=== PATIENT | male | born 1945 | race Caucasian/White ===

== ENCOUNTER 2018-12-21 08:43 | Outpatient (RCR) | payer MEDICARE, OTHER, SELFPAY ==
--- NOTE | 2018-12-21 12:54 | PCSTNOTE ---
This patient was initially evaluated on 10/15/18and found to have receptive/expressive aphasia. See [facility] notes, for details.
[2019-01-08 09:00] VITALS: O2SAT 50
[2019-01-10 10:10] VITALS: O2SAT 100
--- NOTE | 2019-01-21 08:41 | STOPEVAL ---
Thank you for referring this patient to [facility]. Please review, sign, date and return this plan of care AMADOR. I agree with and certify that the following plan of care is medically necessary. Referring Physician Date Admitting Provider: Attending Provider: KATERINA JOSE Referring Provider: LAUREN Outpatient Evaluation Start: 12/21/18 12:19 Freq: Status: Active Protocol: Document 01/14/19 10:17 BAS (Rec: 01/14/19 10:23 BAS [id number]) Therapy Assessment Status Assessment Status Assessment Status Discharge Outpatient Past Medical History Neurological History Hx Cerebrovascular Accident (CVA) Yes: History CVA 10/10/18 Cardiovascular History Hx Cardiac Surgery Yes Hx Coronary Artery Disease Yes Hx Hypertension Yes Respiratory History Hx Respiratory Disorders No Significant History Gastrointestinal History Hx Gastrointestinal Disorders No Significant History Genitourinary History Hx Genitourinary Disorders No Significant History Musculoskeletal History Hx Musculoskeletal Disorders No Significant History Hematological History Hx Hematological Disorders No Significant History Endocrine History Hx Endocrine Disorders No Significant History HEENT History Hx HEENT Disorders No Significant History Integumentary History Hx Skin Disorders No Significant History Reproductive History Hx Reproductive Disorders No Significant History Psychosocial History Hx Psychiatric Disorders No Significant History Pain History History of Any Previous or Ongoing No Significant History Instance of Pain Anesthesia History Hx Anesthesia Reactions No Significant History Pain Assessment Timing of Pain Assessment Timing of Pain Assessment Pre-Treatment Self Report Self Report Pain Level 0 Pain Score Pain Score 0: Self Report Language Evaluation Auditory Comprehension Simple Yes/No Questions (% Accuracy (0- 100 100)) Moderate Yes/No Questions (% Accuracy (0 80 -100)) Complex Yes/No Questions (% Accuracy (0- 40 100)) Auditory Comprehension of Simple 100 Paragraphs (% Accuracy (0-100)) Auditory Comprehension of Moderate 40 Paragraphs (% Accuracy (0-100)) Auditory Comprehension of Complex 80 Paragraphs (% Accuracy (0-100)) Response Latency Mild Deficits Factors Limiting Auditory Comprehension Aphasia Overall Auditory Comprehension Ability Mild Deficits Reading Comprehension Name Recognition Yes Comprehension of Complex Statements (% 0 Accuracy (0-100)) Comprehension of Simple Paragraphs (% 100 Accuracy (0-100)) Comprehension of Moderate Paragraphs (% 100 Accuracy (0-100))
== END 2019-03-21 23:59 | disposition home or self-care (01) ==
LOC: CHSST 08:43
DX: I69.320 Aphasia following cerebral infarction (principal)
CPT/HCPCS: 92507

== ENCOUNTER 2020-12-11 11:28 | Outpatient (CLI) | payer MEDICARE, SELFPAY ==
--- NOTE | 2020-12-11 11:45 | ECG_ITS ---
Measurements Intervals [place] Rate: 51 P: 52 PA: 165 QRS: 59 QRSD: 161 T: 89 QT: 480 QTc: 442 Interpretive Statements SINUS BRADYCARDIA POSSIBLE LEFT ATRIAL ENLARGEMENT LEFT BUNDLE BRANCH BLOCK BASELINE ARTIFACT- I, II, AVR, AVL ABNORMAL ECG Electronically Signed On 12-11-2020 11:51:56 CDT by Kevin Batista D.O.
[2020-12-11 12:12] LABS: Anion Gap 8 mmol/L (8-16); Blood Urea Nitrogen 38 mg/dL (9-20); Calcium 8.9 mg/dL (8.4-10.2); Carbon Dioxide 29 mmol/L (22-30); Chloride 102 mmol/L (98-107); Estimated Glomerular Filt Rate 35; Glucose 115 mg/dL (65-110); INR 1.1; Potassium 4.3 mmol/L (3.4-5.0); Prothrombin Time 13.6 Seconds (11.1-14.7); Sodium 139 mmol/L (137-145)
[2020-12-11 12:13] LABS: Partial Thromboplastin Time 28.1 SECONDS (22.3-36.8)
== END 2020-12-11 11:29 | disposition home or self-care (01) ==
LOC: ANHSURGERY 11:32
PROVIDERS: Anesthesiology; PCP Family Medicine; Visit Provider Surgery
DX: Z01.818 Encounter for other preprocedural examination (principal); K40.90 Unilateral inguinal hernia, without obstruction or gangrene, not specified as recurrent; Z51.81 Encounter for therapeutic drug level monitoring; Z79.899 Other long term (current) drug therapy; I12.9 Hypertensive chronic kidney disease with stage 1 through stage 4 chronic kidney disease, or unspecified chronic kidney disease; N18.30 Chronic kidney disease, stage 3 unspecified; I44.7 Left bundle-branch block, unspecified; R00.1 Bradycardia, unspecified
CPT/HCPCS: 36415; 80048; 85610; 85730; 86850; 86900; 86901; 93005

== ENCOUNTER 2020-12-15 01:15 | Day surgery (SDC) | payer MEDICARE, SELFPAY ==
[2020-12-11 09:21] VITALS: BMI 22.1
[2020-12-15] VITALS (11 sets, daily range): BP systolic 143–187; BP diastolic 51–105; PULSE 44–76; RESP 12–20; TEMP 36.2; O2SAT 97–100
--- NOTE | 2020-12-15 08:06 | WPDANESEPPF ---
Anes - Initial Pre Proc Eval Procedure: Operation Date: 12/15/20 12:30 Proposed Procedures p Laparoscopic Left Inguinal Hernia Repair with Mesh, Davinci Assisted, - Herminio Cunningham DO s Recurrent Incisional Hernia Repair with Mesh - Herminio Cunningham DO Date/Time: 12/15/20 08:06 Surgeon: Herminio Cunningham DO Pre Op Diagnosis: left inguinal hernia, recur incisional hernia Patient Data Age: 75 Gender: M Height: 1.75 m Weight: 68.18 kg Allergies Allergy/AdvReac Type Severity Reaction Status Date / Time tramadol AdvReac Itching Verified 12/15/20 10:37 Home Medications Medication Instructions Recorded Confirmed Type hydrochlorothiazide 25 mg tablet 25 mg PO DAILY #90 tablet 05/27/19 12/15/20 Rx clopidogrel 75 mg tablet 75 mg PO DAILY #90 tablet 08/21/19 12/11/20 Rx losartan 50 mg tablet 50 mg PO DAILY #90 tablet 08/21/19 12/15/20 Rx aspirin 81 mg tablet,delayed 81 mg PO DAILY 08/30/19 12/15/20 History release metoprolol tartrate 50 mg tablet 50 mg PO BID #180 tablet 10/17/19 12/15/20 Rx isosorbide dinitrate 10 mg tablet 10 mg PO BID #180 tablet 01/02/20 12/15/20 Rx ezetimibe 10 mg tablet 10 mg PO DAILY #90 tablet 02/06/20 12/15/20 Rx tamsulosin 0.4 mg capsule 0.8 mg PO QHS #60 cap 11/24/20 12/15/20 Rx atorvastatin [Lipitor] 80 mg PO HS 12/11/20 12/15/20 History hydralazine 10 mg PO PRN 12/15/20 12/15/20 History pantoprazole 20 mg PO BID 12/15/20 12/15/20 History Patient hx anesthesia problems: none Family hx anesthesia problems: none Results Review: All pre-operative results and documents have been reviewed as part of the pre-operative evaluation. [facility] Past Medical History Medical History (Updated 12/15/20 @ 08:07 by Harvinder Luo DO) BPH (benign prostatic hyperplasia) Carotid stenosis, bilateral Chronic kidney disease, stage 3 unspecified Controlled diabetes mellitus Hypertension Non-ST elevation [place] (NSTEMI) Stroke Surgical History Surgical History (Updated 12/15/20 @ 08:07 by Harvinder Luo DO) History of appendectomy History of carotid endarterectomy bilateral History of cholecystectomy History of coronary artery stent placement History of umbilical hernia repair with mesh in 2019 S/P CABG (coronary artery bypass graft) S/P TAVR (transcatheter aortic valve replacement) Family History Family History Sibling Family history of malignant neoplasm Family history of diabetes mellitus in first degree relative Mother Family history of diabetes mellitus in first degree relative Cerebrovascular accident, Onset Age: 65 Patient's mother is Social History Social History Smoking packs per day: 1 Smoking cigarettes per day: 20.0 Years smoked: 4 Smoking pack-years: 4.00 Smoking status: Former smoker Tobacco type: cigarettes Second hand tobacco smoke exposure: No Smoking end date: 02/21/1964 Alcohol intake: current Drinks per week: 3 Substance use: never Substance use type: does not use Living arrangements: with family Gender identity (if verbalized by the patient): Male Sexual Orientation (if Verbalized by the Patient): Straight or Heterosexual Spiritual care concerns: No Anes - Eval Final PreProcedure Day of Procedure 12/15/20 08:06 Patient weight: normal Heart: regular rate and rhythm Lungs: clear to auscultation and normal air movement Airway: Mallampati scale class II Neurological: alert and oriented Last oral intake: >/= 8 hours ASA classification: IV Emergent: no Anesthetic plan: proceed Anesthesia type and monitoring: general ETT and standard monitoring Results Review: All pre-operative results and documents have been reviewed as part of the pre-operative evaluation. Informed Consent: The patient's anesthetic plan and its attendant risks and benefits were discussed with the patient/family/POA
[2020-12-15] MEDS: ACETAMINOPHEN 500 MG TABLET 1000 MG PO (11:05)
[2020-12-15] MEDS: LACTATED RINGERS 1,000 ML 30 ML IV CONT ×3 (11:09→15:52)
[2020-12-15] MEDS: KETOROLAC 15 MG/ML VIAL (*BKC) IV PUSH (11:10)
[2020-12-15 11:15] LABS: Glucose Point of Care 108 mg/dl (65-105)
--- NOTE | 2020-12-15 11:27 | PM.IMHP ---
H&P: HPI History of Present Illness Date/Time: 12/15/20 11:27 Chief Complaint: Recurrent incisional hernia, left inguinal hernia Narrative: This is a 75-year-old man who presents with a recurrent incisional hernia just above his umbilicus. He also has a left inguinal hernia. He presents for surgical repair of these hernias today. He reports no changes in his health since last seen in office. Review of Systems Review of Systems: All systems reviewed & are unremarkable except as noted in HPI and below Constitutional: Constitutional: Denies chills, Denies fever(s), Denies headache(s) and Denies weight loss Eyes: Eyes: Denies change in vision ENT: Denies dizziness, Denies headache(s), Denies neck mass and Denies throat swelling Cardiovascular: Cardiovascular: Denies chest pain, Denies lightheadedness and Denies dyspnea Respiratory: Respiratory: Denies cough, Denies dyspnea and Denies wheezing Gastrointestinal: Gastrointestinal: Denies abdominal pain, Denies change in bowel habits, Denies nausea and Denies vomiting Genitourinary: Genitourinary: Denies hematuria and Denies dysuria Musculoskeletal: Musculoskeletal: Reports as per HPI Integumentary/Breasts: Skin/Breast: Reports as per HPI Neurologic: Denies dizziness and Denies headache(s) Allergic/Immunologic: Allergic/Immunologic: Denies throat swelling and Denies wheezing [facility] Past Medical History Medical History (Updated 12/15/20 @ 08:07 by Harvinder Luo DO) BPH (benign prostatic hyperplasia) Carotid stenosis, bilateral Chronic kidney disease, stage 3 unspecified Controlled diabetes mellitus Hypertension Non-ST elevation [place] (NSTEMI) Stroke Surgical History Surgical History (Updated 12/15/20 @ 08:07 by Harvinder Luo DO) History of appendectomy History of carotid endarterectomy bilateral History of cholecystectomy History of coronary artery stent placement History of umbilical hernia repair with mesh in 2019 S/P CABG (coronary artery bypass graft) S/P TAVR (transcatheter aortic valve replacement) Family History Family History Sibling Family history of malignant neoplasm Family history of diabetes mellitus in first degree relative Mother Family history of diabetes mellitus in first degree relative Cerebrovascular accident, Onset Age: 65 Patient's mother is Social History Social History Smoking packs per day: 1 Smoking cigarettes per day: 20.0 Years smoked: 4 Smoking pack-years: 4.00 Smoking status: Former smoker Tobacco type: cigarettes Second hand tobacco smoke exposure: No Smoking end date: 02/21/1964 Alcohol intake: current Drinks per week: 3 Substance use: never Substance use type: does not use Living arrangements: with family Gender identity (if verbalized by the patient): Male Sexual Orientation (if Verbalized by the Patient): Straight or Heterosexual Spiritual care concerns: No Meds Home Medications and Allergies Home Medications Medication Instructions Recorded Confirmed Type hydrochlorothiazide 25 mg tablet 25 mg PO DAILY #90 tablet 05/27/19 12/15/20 Rx clopidogrel 75 mg tablet 75 mg PO DAILY #90 tablet 08/21/19 12/11/20 Rx losartan 50 mg tablet 50 mg PO DAILY #90 tablet 08/21/19 12/15/20 Rx aspirin 81 mg tablet,delayed 81 mg PO DAILY 08/30/19 12/15/20 History release metoprolol tartrate 50 mg tablet 50 mg PO BID #180 tablet 10/17/19 12/15/20 Rx isosorbide dinitrate 10 mg tablet 10 mg PO BID #180 tablet 01/02/20 12/15/20 Rx ezetimibe 10 mg tablet 10 mg PO DAILY #90 tablet 02/06/20 12/15/20 Rx tamsulosin 0.4 mg capsule 0.8 mg PO QHS #60 cap 11/24/20 12/15/20 Rx atorvastatin [Lipitor] 80 mg PO HS 12/11/20 12/15/20 History hydralazine 10 mg PO PRN 12/15/20 12/15/20 History pantoprazole 20 mg PO BID 12/15/20 12/15/20 History Allergies Allergy/Ad
--- NOTE | 2020-12-15 11:30 | WPDHPUPDATE1 ---
History and Physical Update Update Date/Time: 12/15/20 11:30 History and Physical has been reviewed, including an updated exam of the patient. There are NO changes in the patient's condition. Risks, benefits, and alternatives have been discussed and questions answered. Patient agrees to proceed with procedure.
[2020-12-15] MEDS: ceFAZolin 2 GM/D5W 50 ML 2 GM/50 ML BAG IVPB (11:59)
[2020-12-15] MEDS: BUPIVACAINE HCL 0.5% PF 30 ML VIAL INFILTRATE (12:13)
--- NOTE | 2020-12-15 13:36 | SUR.OPER ---
EBL=5ml
--- NOTE | 2020-12-15 13:39 | W.PM.PROC2 ---
Procedure Note - Detailed Date of Procedure 12/15/20 Pre-op Diagnosis Recurrent incisional hernia, left inguinal hernia Post-op Diagnosis same Procedure Performed 1. Recurrent incisional hernia repair with Ventralex ST 8 cm mesh patch 2. Laparoscopic left inguinal hernia repair with mesh, da Joao assisted Surgeon Herminio Cunningham DO Anesthesia general and local (0.5% bupivacaine with epinephrine) Indications This is a 75-year-old man who presents with a supraumbilical bulge and left groin bulge. He had noticed the left groin bulge and discomfort for several months, and notice the supraumbilical bulge shortly after having an umbilical hernia repair and laparoscopic cholecystectomy. He appears to have a recurrent incisional hernia near the site of the previous laparoscopic cholecystectomy and hernia repair and was also found to have a reducible left inguinal hernia. Discussions were made with the patient about treatment options and decision was made to proceed with recurrent incisional hernia repair with mesh and laparoscopic left inguinal hernia repair with mesh, de Joao assisted. Findings The patient was found to have a 1.5 cm recurrent incisional hernia just superior to the umbilicus. The hernia sac was excised and sent to the lab for pathology. The hernia was then repaired using an [address] mesh patch. The left inguinal hernia was repaired laparoscopically with robotic assistance. He was found to have an indirect left inguinal hernia. There was sigmoid colon entering up into the hernia orifice, but this was easily reduced. A robotic transabdominal preperitoneal approach was utilized and a large left Bard 3DMax mid mesh was placed within the preperitoneal pocket overlying the entire left myopectineal orifice. Description of Procedure Procedure as well as risks, benefits, and alternatives were discussed with the patient. Written consent was obtained and placed in chart prior to procedure. Patient was brought back to surgical suite. He was placed supine on operating table. Time-out was done to confirm patient and procedure. He was then intubated by Anesthesia Department. His abdomen was prepped and draped in sterile fashion using chlorhexidine prep. 0.5% bupivacaine with epinephrine was infiltrated at each location for incision. A 4 cm curvilinear incision was made just superior to the umbilicus using a 15 blade scalpel. Electrocautery was used for hemostasis and for dissection through the subcutaneous tissue. The hernia sac was encountered and this was carefully dissected free circumferentially using electrocautery. The hernia sac was also lifted off of the umbilical skin with electrocautery. The hernia sac was then excised and sent to the lab for pathology. The incisional hernia measured about 1.5 cm, therefore the hernia was used as the port site for the initial 12 mm port. A 12 millimeter trocar was inserted through the hernia defect and carbon dioxide insufflation was used to create a pneumoperitoneum. A camera was inserted and the abdominal cavity was inspected. The patient was placed in slight Trendelenburg position. An 8 millimeter incision was made on the right lateral abdomen and an 8 millimeter trocar was inserted under direct visualization. Another 8 millimeter incision was made in the left lateral abdomen and an 8 millimeter trocar was inserted under direct visualization. The robotic arms were brought up to the patient's bedside and secured to the ports. The camera and instruments were inserted. I then moved over to the robotic console and took control of the camera and instruments. After careful inspection of the abdominal cavity, I began scoring the peritoneum along the left lower quadrant using scissors with electrocautery. The preperitoneal plane was entered and this was carefully dissected caudally along the inferior epigastric vessels. Careful dissection with scissors with electrocautery and blunt dissection was us
[2020-12-15 14:04] LABS: Glucose Point of Care 103 mg/dl (65-105)
[2020-12-15] MEDS: hydrALAZINE HCL 20 MG/ML VIAL 10 MG IV PUSH (15:49)
== END 2020-12-15 16:35 | disposition home or self-care (01) ==
PROVIDERS: PCP Family Medicine; Visit Provider Surgery
PROC: 8E0Y4CZ Robotic Assisted Procedure of Lower Extremity, Percutaneous Endoscopic Approach (ICD-10-PCS; CPT 49650; principal; 2020-12-15 12:30)
PROC: 0WQF0ZZ Repair Abdominal Wall, Open Approach (ICD-10-PCS; CPT 49565; 2020-12-15 12:30)
DX: K43.2 Incisional hernia without obstruction or gangrene (principal); K40.90 Unilateral inguinal hernia, without obstruction or gangrene, not specified as recurrent; I12.9 Hypertensive chronic kidney disease with stage 1 through stage 4 chronic kidney disease, or unspecified chronic kidney disease; N18.30 Chronic kidney disease, stage 3 unspecified; E11.22 Type 2 diabetes mellitus with diabetic chronic kidney disease; I25.2 Old myocardial infarction; N40.0 Benign prostatic hyperplasia without lower urinary tract symptoms; I65.23 Occlusion and stenosis of bilateral carotid arteries; Z86.73 Personal history of transient ischemic attack (TIA), and cerebral infarction without residual deficits; Z95.5 Presence of coronary angioplasty implant and graft; Z95.1 Presence of aortocoronary bypass graft; Z95.4 Presence of other heart-valve replacement; Z87.891 Personal history of nicotine dependence; Z79.02 Long term (current) use of antithrombotics/antiplatelets; Z79.82 Long term (current) use of aspirin
CPT/HCPCS: 49565; 49568; 49650; S2900; 82948; 88302; A9270; J0360; J0690; J1100; J1885; J2405; J2704; J2710; J3010; J7120

== ENCOUNTER 2023-05-03 09:30 | Outpatient (RCR) | payer MEDICARE, SELFPAY | END 2023-05-03 14:00 | disposition home or self-care (01) | PROVIDERS: PCP Family Medicine | DX: Z95.5 Presence of coronary angioplasty implant and graft (principal) | CPT/HCPCS: 93798 ==

== ENCOUNTER 2023-06-05 09:30 | Outpatient (CLI) | payer MEDICARE, SELFPAY ==
--- NOTE | ~2023-06-05 | XR_ITS ---
Left Knee Technique: AP and lateral views were obtained. Clinical History: Effusion Findings: No fracture or dislocation is seen. Osseous alignment is anatomic. Joint spaces are preserv ed without degenerative or erosive change. There is prepatellar soft tissue edema/thickening. No join t effusion is seen. Impression: Prepatellar soft tissue edema/thickening. Correlate for prepatellar bursitis. Reviewed, dictated and finalized at location . Impression: Prepatellar soft tissue edema/thickening. Correlate for prepatellar bursitis.
== END 2023-06-05 09:31 ==
PROVIDERS: PCP Family Medicine; Visit Provider Family Medicine
DX: M25.462 Effusion, left knee (principal)
CPT/HCPCS: 73560

== ENCOUNTER 2024-01-03 12:07 | Outpatient (CLI) | payer MEDICARE, SELFPAY ==
--- NOTE | ~2024-01-03 | XR_ITS ---
XR chest 2V Ordering provider: Shemar Dennis MD History: 78 years Male with . R06.09 - Other forms of dyspnea . Comparison: None. FINDINGS: MEDIASTINUM: The cardiac silhouette is not enlarged. Postoperative changes in the mediastinum. LUNGS: No infiltrates, effusions or pneumothorax. Prominent bronchovascular markings in the left lowe r lobe which may indicate atelectasis. Early pneumonia is not excluded. OTHER: No free air under the diaphragm. Fracture T12 is noted with compression which may be acute or chronic. MRI is advised. Old healed ribs in the left hemithorax. Degenerative changes of the spine. IMPRESSION: Prominent bronchovascular markings in the left lower lobe area which may indicate atelectasis versus early pneumonia. Reviewed, dictated and finalized at location [facility] [employer] IMPRESSION: Prominent bronchovascular markings in the left lower lobe area which may indica te atelectasis versus early pneumonia.
== END 2024-01-03 12:08 | disposition home or self-care (01) ==
LOC: GOSHIMG 12:09
PROVIDERS: PCP Family Medicine; Visit Provider Family Medicine
DX: R06.09 Other forms of dyspnea (principal)
CPT/HCPCS: 71046

== ENCOUNTER 2024-06-24 14:35 | Outpatient (CLI) | payer MEDICARE, SELFPAY ==
--- NOTE | ~2024-06-24 | US_ITS ---
EXAMINATION: US renal BI DATE: 06/24/2024 15:04 INDICATION: Stage IV chronic kidney disease TECHNIQUE: Multiple ultrasound grayscale images of the kidneys were obtained. COMPARISON: None. FINDINGS: The right kidney measures 10.7 x 5.1 x 5.4 cm. The left kidney measures 9.5 x 4.4 x 4.0 cm. The kidne ys demonstrate normal echogenicity. There is no hydronephrosis in either kidney. No stones identifie d. The bladder is normal. IMPRESSION: 1. Normal kidneys without hydronephrosis. Reviewed, dictated and finalized at location A.
== END 2024-06-24 14:36 | disposition home or self-care (01) ==
LOC: MICIMG 14:37
PROVIDERS: PCP Family Medicine; Visit Provider Family Medicine
DX: N18.4 Chronic kidney disease, stage 4 (severe) (principal)
CPT/HCPCS: 76775

== ENCOUNTER 2024-09-03 08:12 | Outpatient (CLI) | payer MEDICARE, SELFPAY ==
--- NOTE | ~2024-09-03 | US_ITS ---
EXAMINATION: US arterial ankle brachial ind DATE: 09/03/2024 09:29 INDICATION: Peripheral vascular disease TECHNIQUE: Segmental pressures and plethysmographic and Doppler waveforms of the brachial and lower e xtremity arteries were obtained. COMPARISON: None. FINDINGS: Right and left brachial artery pressures of 151 mm Hg and 155 mm Hg, respectively, are concordant (no rmal difference <= 30 mmHg). The right ankle-brachial index (ITALO) is unable to be obtained due to inability to occlude the vessels at the right ankle (normal >= 0.9-1.0). The right great toe-brachial index (TBI) is 0.28 (normal >= 0.65). Arterial Doppler waveforms are monophasic with parvus and tardus waveforms with mildly delayed systolic upstrokes and broadened systolic peaks at the right posterior tibial and dorsalis pedis art eries. The left ITALO is also unable to be obtained due to inability to occlude the vessels at the left ankle. The left TBI is 0.19. Arterial Doppler waveforms are monophasic with mildly delayed upstrokes and br oadened systolic peaks at the left dorsalis pedis artery and biphasic with borderline delayed systoli c upstrokes at the left posterior tibial artery. IMPRESSION: 1. Arterial occlusive disease to the bilateral lower limbs with mildly decreased right and severely d ecreased left TBIs and parvus et tardus waveforms in the right posterior tibial and bilateral dorsali s pedis arteries. Reviewed, dictated and finalized at location A. IMPRESSION: 1. Arterial occlusive disease to the bilateral lower limbs with mildly decrease d right and severely decreased left TBIs and parvus et tardus waveforms in the right posterior tibial and bilateral dorsalis pedis arteries.
--- OUTSIDE RECORDS SUMMARY | 2024-09-03 08:21 | XMS_ITS ---
Author Organization [facility] Address [address] [place], [place] [id number] Care Team Providers Care Servicer Travel Trailers Name Role Phone YEFRI Austin Unavailable [phone] Shemar Dennis Unavailable Unavailable RACHIE CHAHAL Unavailable [phone] REASON FOR VISIT *General care Medications Medication [...] Active Encounters Encounter Location Date Provider Diagnosis [address] [id number] 02/01/2024 ARCHIE CHAHAL Other hammer toe(s) (acquired), right foot M20.41 ; Tinea unguium B35.1 ; Other hammer toe(s) (acquired), left foot M20.42 ; Pain in right toe(s) M79.674 ; Pain in left toe(s) M79.675 and Unspecified atherosclerosis of [place] arteries of extremities, bilateral legs I70.203 Assessments [...] (ICD-10 - M79.675) 02/01/2024 Unspecified atherosclerosis of [place] arteries of extremities, bilateral legs (ICD-10 - [...] OTC and prescription treatments. Unspecified atherosclerosis of [place] arteries of extremities, bilateral legs Patient educated on risks and aggravating factors of PVD, including conservative treatment options such as a diet and exercise regimen to aid in slowing progression of vascular disease Next Appt Details Follow Up: 3 Months, Reason: Provider Name:KRISTIN VILLEGAS, 09/05/2024 08:50:00 AM, [address] [place] [address], [id number], Progress Notes * NACHO MARTEDOB:1945 (78 yo M)Acc No.[id number]:02/01/2024 Patient: NACHO RAMIREZ Provider: Amirah CHAHAL :1945 A ge:78 Y S ex:Male Date:02/01/2024 Address:[address] [place] [address] Subjective: * Chief Complaints: * 1 . [...] M79.675 6 . U nspecified atherosclerosis of [place] arteries of extremities, bilateral legs - I70.203 [...] were emphasized. 3. U nspecified atherosclerosis of [place] arteries of extremities, bilateral legs Notes: Patient educated on risks and aggravating factors of PVD, including conservative treatment options such as a diet and exercise regimen to aid in slowing progression of vascular disease ? * Procedure Codes: 1 1721 DEBRIDE NAIL, 6 OR MORE, Modifiers: Q8 * Follow Up: 3 Months * Billing Information: * Visit Code: * Procedure Codes: 79418 DEBRIDE NAIL, 6 OR MORE. Modifiers: Q8 * Electronic signature of GUILLERMINA CHAHAL DPM on 09/03/2024 at 08:21 AM CDT Sign off status: Pending * Provider: Amirah CHAHAL Date: 1 04/03/2023 Generated for Omid estrada/Adriana/Cem on: 0 09/03/2024 08:21 AM CDT History and Physical Notes * HPI [...]
--- OUTSIDE RECORDS SUMMARY | 2024-09-03 08:21 | XMS_ITS ---
Author Organization [facility] Address [address] [place], [place] [address] Care Team Providers Care Lead Engineer Name Role Phone YEFRI Austin Unavailable [phone] Shemar Dennis Unavailable Unavailable KRISTIN GEORGE Unavailable [phone] Allergies No Known Allergies REASON FOR VISIT *General care Medications Medication SIG (Take, Route, Frequency, Duration) Notes Start Date End Date Status Tamsulosin HCl 0.4 MG Oral; Duration: 90 Days Active Pantoprazole Sodium 20 MG Oral; Duration: 90 Days Active Metoprolol Tartrate 25 MG Oral; Duration: 90 Days Active Losartan Potassium 100 MG Oral; Duration: 90 Days Active hydroCHLOROthiazide 25 MG Oral; Duration: 90 Days Active Ezetimibe 10 MG Oral; Duration: 90 Days Active Clopidogrel Bisulfate 75 MG Oral; Duration: 90 Days Active Isosorbide Dinitrate 10 MG Oral; Duration: 90 Days Active Atorvastatin Calcium 80 MG Oral; Duration: 90 Days Active Vital Signs Height 69.00 in 07/04/2024 Weight 152 lbs 07/04/2024 BMI 22.44 kg/m2 07/04/2024 Height-cm 175.26 cm 07/04/2024 Weight-kg 68.95 kg 07/04/2024 9 Encounters Encounter Location Date Provider Diagnosis [address] [id number] 07/04/2024 KRISTIN GEORGE Tinea unguium B35.1 ; Pain in right toe(s) M79.674 ; Pain in left toe(s) M79.675 and Atherosclerosis of [place] arteries of extremities with intermittent claudication, bilateral legs I70.213 Assessments Encounter Date Diagnosis (ICD Code) Assessment Notes Treatment Notes Treatment Clinical Notes Section Notes 07/04/2024 Tinea unguium (ICD-10 - B35.1) FUNGAL TOENAILS: Discussed various treatment options for fungal toenails including debridement, topical antifungals, oral antifungals, toenail avulsion, or toenail matrixectomy. NAIL DEBRIDEMENT: Nails 1-5 Bilateral were debrided extensively with nail nippers and emery board, reducing length and girth to pink healthy tissue with any subungual debris and necrotic tissue removed 07/04/2024 Pain in right toe(s) (ICD-10 - M79.674) 07/04/2024 Pain in left toe(s) (ICD-10 - M79.675) 07/04/2024 Atherosclerosis of [place] arteries of extremities with intermittent claudication, bilateral legs (ICD-10 - I70.213) Plan Of Treatment Treatment Notes Assessment Notes Tinea unguium FUNGAL TOENAILS: Discussed various treatment options for fungal toenails including debridement, topical antifungals, oral antifungals, toenail avulsion, or toenail matrixectomy. NAIL DEBRIDEMENT: Nails 1-5 Bilateral were debrided extensively with nail nippers and emery board, reducing length and girth to pink healthy tissue with any subungual debris and necrotic tissue removed Next Appt Details Follow Up: 10-12 Weeks, Reas on: At Risk Foot care, sooner if problems arise Provider Name:KRISTIN VILLEGAS, 09/05/2024 08:50:00 AM, [address] [place] [address], [phone], Progress Notes * NACHO MARTEDOB:1945 (78 yo M)Acc No.[id number]:07/04/2024 Patient: Marii BRADSHAW NACHO Germain Provider: Koki GEORGE :1945 A ge:78 Y S ex:Male Date:07/04/2024 Address:[address] [place] [address] Subjective: * Chief Complaints: * 1 . *General care. * HPI: H PI: General care P atient presents to the office for diabetic foot care. Patient states that their nails are thickened, elongated and painful. Patient states that it is aggravated by shoe gear. Onset is gradual., Patient denies taking prescription blood thinners but does take a daily aspirin., Date last seen by Dr. Dennis was 05/2024., Initials mca. * ROS: G eneral / Constitutional: Patient denies w eakness. M usculoskeletal: Patient complains of h ammertoes. P eripheral Vascular: Patient denies b lanching of skin, cold extremities, decreased sensation in extremities. S kin: Patient complains of f ungal nails, nail changes. ? N eurologic: Patient denies d izziness, gait abnormality, headache. * Medical History: Koki sibley. * Family History: F ather: PRN - Father: :: Stroke,,known absent , :: Diabetes,,known absent . M other: PRN - Mother: :: Hypertension,,known absent . B rother: SIB - Brother: :: Hypertension,,known absent , , :: Diabetes,,known absent , :: Heart Disease < 55 yrs,,known absent . S ister: SIB - Sister: :: Hypertension,,known absent , :: Cancer,,known absent , , :: Diabetes,,known absent .? * Social History: M igrated Social History: M igrated Social History: Alcohol intake : , History of tobacco use : , Smoking Status : Former smoker. * Medications: T aking Atorvastatin Calcium 80 [...] Taking Tamsulosin HCl 0.4 MG Capsule Oral , Medication List reviewed and reconciled with the patient * Allergies: N .K.D.A. Objective: * Vitals: S hoe Size: 9, Wt: 152 lbs, Wt-k.95 kg, Ht: 69.00 in, Ht-cm: 175.26 cm, BMI: 22.44 Index, Body Surface Area: 1.83. 9. * Examination: C onstitutional: Constitutional T he patient is awake, alert, well developed, well groomed and well nourished. D ermatologic: Skin findings: S kin is thin, atrophic and lacking pedal hair. Nail pathology: N ails 1, 2, 3, 4, and 5 bilateral are elongated, thick, discolored, and dystrophic with subungual debris. They are painful to palpation. ? V ascular: Dorsalis pedis pulse: 1 /4 b ilateral. Posterior tibial pulse: 0 /4 b ilateral. Capillary refill: g reater than 3 seconds. Edema: N o edema, bilateral. N eurologic: Gross sensation G ross sensation is intact to light touch.? M usculoskeletal: Muscle Strength M uscle strength is 5/5 in regards to dorsiflexion, plantarflexion, inversion, and eversion in bilateral lower extremities. ? Assessment: * Assessment: 1. T inea unguium - B35.1 (Primary) 2 . P ain in right toe(s) - M79.674? 3. P ain in left toe(s) - M79.675 4 . A therosclerosis of [place] arteries of extremities with intermittent claudication, bilateral legs - I70.213 Plan: * Treatment: * Immunizations: Immunization record has been reviewed and updated. * Procedure Codes: 1 1721 DEBRIDE NAIL, 6 OR MORE, Modifiers: Q8 * Follow Up: 1 0-12 Weeks (Reason: At Risk Foot care, sooner if problems arise) * Billing Information: * Visit Code: * Procedure Codes: 91307 DEBRIDE NAIL, 6 OR MORE. Modifiers: Q8 * Electronic signature of MARTINA GEORGE DPM on 09/03/2024 at 08:21 AM CDT Sign off status: Pending * Provider: Koki GEORGE Date: 0 07/04/2024 Generated for Omid Garza on: 0 09/03/2024 08:21 AM CDT History and Physical Notes * HPI (History of Present Illness) Category Sub-Category Detail Notes Category Not es HPI General care Patient presents to the office for diabetic foot care. Patient states that their nails are thickened, elongated and painful. Patient states that it is aggravated by shoe gear. Onset is gradual., Patient denies taking prescription blood thinners but does take a daily aspirin., Date last seen by Dr. Dennis was 05/2024., Initials mca Examination Category Sub-Category Detail Notes Category Not es Dermatologic Skin findings: Skin is thin, at rophic and lacking pedal hair Nail pathology: Nails 1, 2, 3, 4, an d 5 bilateral are elongated, thick, discolored, and dystrophic with subungual debris. They are painful to palpation Neurologic Gross sensation Gross sensation is intact to light touch Vascular Dorsalis pedis pulse: 1/4 bilateral Edema: No edema, bilateral Capillary refill: greater than 3 secon ds Posterior tibial pulse: 0/4 bilateral Musculoskeletal Muscle Strength Muscle strength is 5/5 in regards to dorsiflexion, plantarflexion, inversion, and eversion in bilateral lower extremities Constitutional Constitutional The patient is a wake, alert, well developed, well groomed and well nourished
--- OUTSIDE RECORDS SUMMARY | 2024-09-03 08:21 | XMS_ITS | Clinical Summary ---
Author Organization [facility] SocialGuide Address [address] [place] [address] Care Team Providers Care First Breaker Feeder Name Role Phone Unavailable Primary Care Provider Unavailabl e Source Comments [facility],non-owned Affiliates and Associated Physician Practices is amultiple site organization consisting of ambulatory clinics and hospital sitesin [place], [place], [place] and [place]. This disclosure is being madepursuant to the Care Everywhere program and may not contain all information available regarding this patient. Last updated 17.[facility] [employer] Allergies No known active allergies Medications * Be aware that medications may not be up to date on this document. Alwaysverify current medications with the patient. lisinopril (PRINIVIL; ZESTRIL) 10 MG tablet Take 10 mg by mouth daily. Take am of surgery Active niacin CR (NIASPAN) 500 MG tablet Take 500 mg by mouth at bedtime. Active LIPITOR PO Take by mouth daily. Active aspirin 81 MG tablet Take 81 mg by mouth daily. Active MULTIPLE VITAMINS PO Take by mouth. 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 Gender Identity Not on file Sexual Orientation Not on file Last Filed Vital Signs Vital Sign Reading Time Taken Comments Blood Pressure 123/64 04/28/2009 8:00 AM MOTTLE LAY UP OPERATOR Pulse 100 04/28/2009 8:00 AM MOTTLE LAY UP OPERATOR Temperature 36.9 C (98.5 F) 04/28/2009 12:00 AM MOTTLE LAY UP OPERATOR Respiratory Rate 13 04/28/2009 7:00 AM MOTTLE LAY UP OPERATOR Oxygen Saturation 99% 04/28/2009 8:00 AM MOTTLE LAY UP OPERATOR Inhaled Oxygen Concentration - - Weight 78.1 kg (172 lb 2.9 oz) 04/28/2009 8:00 A M MOTTLE LAY UP OPERATOR Height 175.3 cm (5' 9) 04/28/2009 8:00 AM MOTTLE LAY UP OPERATOR Body Mass Index 25.43 04/28/2009 8:00 AM MOTTLE LAY UP OPERATOR Plan of Treatment Health Maintenance Due Date Last Done Comments DTAP/TDAP/TD VACCINES (1 - Tdap) 12/08/1962 PNEUMOCOCCAL VACCINE 50+ (1 of 1 - PCV) 12/08/1993 ZOSTER VACCINE (1 of 2) 12/08/1993 Respiratory Syncytial Virus (RSV) Vaccine Pt: or over 60 yrs (1 - 1-dose 75+ series) 12/08/2018 COVID-19 VACCINE ( - 2023-2 5 season) 2023 DEPRESSION SCREENING 02/21/2024 INFLUENZA VACCINE (#1) 2024 HEPATITIS B VACCINE Aged Out No longe r eligible based on patient's age to complete this topic HIB VACCINE Aged Out No longer eligi ble based on patient's age to complete this topic HPV VACCINE Aged Out No longer eligi ble based on patient's age to complete this topic MENINGOCOCCAL (Group B) VACC INE SHARED DECISION-MAKING Aged Out No longer eligibl e based on patient's age to complete this topic MENINGOCOCCAL GROUPS A/C/Y/W VACCINE Aged Out No longer eligible b ased on patient's age to complete this topic Insurance MEDICARE Advance Directives * Full Code (Latest Code Status on File) Date Activated Date Inactivated Comments 04/27/2009 1:02 PM 04/29/2009 1:09 AM
--- OUTSIDE RECORDS SUMMARY | 2024-09-03 08:21 | XMS_ITS | Patient Health Record ---
Author Organization [facility] Address [address] [place], [place] [address] Care Team Providers Care Ammunition Assembly I Laborer Name Role Phone MayteYEFRI walters Unavailable [phone] Shemar Dennis Unavailable Unavailable DELIA MARTINEZ Unavailable [phone] ARCHIE CHAHAL Unavailable [phone] KRISTIN GEORGE Unavailable [phone] Allergies No Known Allergies Reason For Referral No Information Medications Medication SIG (Take, Route, Frequency, Duration) Notes Start Date End Date Status Ezetimibe 10 MG Oral; Duration: 90 Days Active Clopidogrel Bisulfate 75 MG Oral; Duration: 90 Days Active Isosorbide Dinitrate 10 MG Oral; Duration: 90 Days Active Tamsulosin HCl 0.4 MG Oral; Duration: 90 Days Active Atorvastatin Calcium 80 MG Oral; Duration: 90 Days Active Pantoprazole Sodium 20 MG Oral; Duration: 90 Days Active Metoprolol Tartrate 25 MG Oral; Duration: 90 Days Active Losartan Potassium 100 MG Oral; Duration: 90 Days Active hydroCHLOROthiazide 25 MG Oral; Duration: 90 Days Active Vital Signs Height-cm 175.26 cm 07/04/2024 9 Weight-kg 68.95 kg 07/04/2024 9 Height 69.00 in 07/04/2024 9 Weight 152 lbs 07/04/2024 9 BMI 22.44 kg/m2 07/04/2024 9 Encounters Encounter Location Date Provider Diagnosis [address] [id number] 02/01/2024 ARCHIE CHAHAL Other hammer toe(s) (acquired), right foot M20.41 ; Tinea unguium B35.1 ; Other hammer toe(s) (acquired), left foot M20.42 ; Pain in right toe(s) M79.674 ; Pain in left toe(s) M79.675 and Unspecified atherosclerosis of [place] lions arteries of extremities, bilateral legs I70.[address] [id number] 07/04/2024 KRISTIN CRUZFORD Tinea unguium B35.1 ; Pain in right toe(s) M79.674 ; Pain in left toe(s) M79.675 and Atherosclerosis of [place] lions arteries of extremities with intermittent claudication, bilateral legs I70.[address] [id number] 09/28/2023 ARCHIE CHAHAL Other hammer toe(s) (acquired), right foot M20.41 ; Tinea unguium B35.1 ; Other hammer toe(s) (acquired), left foot M20.42 ; Pain in right toe(s) M79.674 ; Pain in left toe(s) M79.675 and Unspecified atherosclerosis of port lions arteries of extremities, bilateral legs I70.[address] [id number] 11/30/2023 ARCHIE CHAHAL Other hammer toe(s) (acquired), right foot M20.41 ; Tinea unguium B35.1 ; Other hammer toe(s) (acquired), left foot M20.42 ; Pain in right toe(s) M79.674 ; Pain in left toe(s) M79.675 and Unspecified atherosclerosis of port lions arteries of extremities, bilateral legs I70.[address] [id number] 04/11/2024 DELIA GUTIERREZYADIRA Tinea unguium B35.1 ; Pain in right toe(s) M79.674 ; Pain in left toe(s) M79.675 and Atherosclerosis of [place] lions arteries of extremities with intermittent claudication, bilateral legs I70.213 Assessments Encounter Date Diagnosis (ICD Code) Assessment Notes Treatment Notes Treatment Clinical Notes Section Notes 09/28/2023 Tinea unguium (ICD-10 - B35.1) Aseptic debridement [...] educated regarding both OTC and prescription treatments. 09/28/2023 Other hammer toe(s) (acquired), right foot (ICD-10 [...] were discussed, but conservative options were emphasized. 11/30/2023 Other hammer toe(s) (acquired), right foot (ICD-10 [...] were discussed, but conservative options were emphasized. 11/30/2023 Tinea unguium (ICD-10 - B35.1) Aseptic debridement [...] regarding both OTC and prescription treatments. 02/01/2024 Tinea unguium (ICD-10 - B35.1) Aseptic [...] prescription treatments. 02/01/2024 Other hammer toe(s) (acquired), right foot [...] were discussed, but conservative options were emphasized. 04/11/2024 Tinea unguium (ICD-10 - B35.1) FUNGAL TOENAILS: Discussed various treatment options for fungal toenails including debridement, topical antifungals, oral antifungals, toenail avulsion, or toenail matrixectomy. NAIL DEBRIDEMENT: Nails 1-5 Bilateral were debrided extensively with nail nippers and emery board, reducing length and girth to pink healthy tissue with any subungual debris and necrotic tissue removed 04/11/2024 Pain in right toe(s) (ICD-10 - M79.674) 07/04/2024 Tinea unguium (ICD-10 - B35.1) FUNGAL [...] Pain in left toe(s) (ICD-10 - M79.675) 04/11/2024 Pain in left toe(s) (ICD-10 - M79.675) 02/01/2024 Other hammer toe(s) (acquired), left foot (ICD-10 - M20.42) 11/30/2023 Other hammer toe(s) (acquired), left foot (ICD-10 - M20.42) 09/28/2023 Other hammer toe(s) (acquired), left foot (ICD-10 - M20.42) 09/28/2023 Pain in right toe(s) (ICD-10 - M79.674) 11/30/2023 Pain in right toe(s) (ICD-10 - M79.674) 02/01/2024 Pain in right toe(s) (ICD-10 - M79.674) 04/11/2024 Atherosclerosis of [place] lions arteries of extremities with intermittent claudication, bilateral legs (ICD-10 - I70.213) 07/04/2024 Atherosclerosis of [place] lions arteries of extremities with intermittent claudication, bilateral legs (ICD-10 - I70.213) 02/01/2024 Pain in left toe(s) (ICD-10 - M79.675) 11/30/2023 Pain in left toe(s) (ICD-10 - M79.675) 09/28/2023 Pain in left toe(s) (ICD-10 - M79.675) 09/28/2023 Unspecified atherosclerosis of [place] lions arteries of extremities, bilateral legs (ICD-10 - I70.203) Patient educated on risks and aggravating factors of PVD, including conservative treatment options such as a diet and exercise regimen to aid in slowing progression of vascular disease 02/01/2024 Unspecified atherosclerosis of [place] lions arteries of extremities, bilateral legs (ICD-10 - I70.203) Patient educated on risks and aggravating factors of PVD, including conservative treatment options such as a diet and exercise regimen to aid in slowing progression of vascular disease 11/30/2023 Unspecified atherosclerosis of [place] lions arteries of extremities, bilateral legs (ICD-10 - I70.203) Patient educated on risks and aggravating factors of PVD, including conservative treatment options such as a diet and exercise regimen to aid in slowing progression of vascular disease Plan Of Treatment Next Appt Details Provider Name:KRISTIN VILLEGAS, 09/05/2024 08:50:00 AM, [address] [place] [address], [phone], Insurance Providers Payer Name Payer Address Payer Phone Subscriber Number Group Number Insured Name Patient Relationship to Insured Coverage Start Date Coverage End Date Medicare Part B [place] [address] [place] [phone] [id number] NACHO MARTE Self - patient is the insured [facility] ([facility]) ATTN CLAIMS [address] [place] [address] [id number] NACHO MARTE Self - patient is the insured Medical (General) History Medical History History ICD Code Diabetic
== END 2024-09-03 08:13 | disposition home or self-care (01) ==
PROVIDERS: PCP Family Medicine; Visit Provider Family Medicine
DX: I73.9 Peripheral vascular disease, unspecified (principal)
CPT/HCPCS: 93922

== ENCOUNTER 2024-12-13 18:49 | Emergency (ER) | payer MEDICARE, SELFPAY ==
--- OUTSIDE RECORDS SUMMARY | 2024-02-01 03:20 | XMS_ITS ---
Author Organization [facility] Address [address] [place], [place] [id number] Care Team Providers Care Rotary Filter Operator Name Role Phone YEFRI Austin Unavailable [phone] Shemar Dennis Unavailable Unavailable ARCHIE CHAHAL Unavailable [phone] REASON FOR VISIT *General care Medications Medication SIG (Take, Route, Frequency, Duration) Notes Start Date End Date Status hydroCHLOROthiazide 25 MG Oral; Duration: 90 Days Active Pantoprazole Sodium 20 MG Oral; Duration: 90 Days Active Metoprolol Tartrate 25 MG Oral; Duration: 90 Days Active Tamsulosin HCl 0.4 MG Oral; Duration: 90 Days Active Losartan Potassium 100 MG Oral; Duration: 90 Days Active Isosorbide Dinitrate 10 MG Oral; Duration: 90 Days Active Ezetimibe 10 MG Oral; Duration: 90 Days Active Clopidogrel Bisulfate 75 MG Oral; Duration: 90 Days Active Atorvastatin Calcium 80 MG Oral; Duration: 90 Days Active Encounters Encounter Location Date Provider Diagnosis [address] [id number] 02/01/2024 ARCHIE CHAHAL Other hammer toe(s) (acquired), right foot M20.41 ; Tinea unguium B35.1 ; Other hammer toe(s) (acquired), left foot M20.42 ; Pain in right toe(s) M79.674 ; Pain in left toe(s) M79.675 and Unspecified atherosclerosis of [place] arteries of extremities, bilateral legs I70.203 Assessments Encounter Date Diagnosis (ICD Code) Assessment Notes Treatment Notes Treatment Clinical Notes Section Notes 02/01/2024 Other hammer toe(s) (acquired), right foot (ICD-10 - M20.41) The patient was educated regarding how to mechanically stabilize their deformity. The patient was given education about shoe recommendations specific for the condition. The patient was educated about custom orthotics and how appropriate shoes and orthotics can prevent further worsening of the deformity. The patient was educated about how bad shoe habits can worsen the condition. NSAIDS, P.T., injections and other conservative treatments were discussed. Both surgical and non surgical treatments were discussed, but conservative options were emphasized. 02/01/2024 Tinea unguium (ICD-10 - B35.1) Aseptic debridement of elongated thickened nails x 10 using sterile nippers, nails were debrided in length and thickness by 30% utilizing a nail nipper without incident. The patient was educated regarding all treatment options that include topical and oral antifungal treatments. I discussed the options of taking a sample of the nail to confirm diagnosis. Nail clippings were not sent for pathology analysis. The patient was educated why and how the fungal infection evolved in their feet and the patient was given information regarding how to prevent further infection. The patient was told to keep feet dry and change socks. The patient was told to be careful with old shoes and excessive sweating. The patient was educated regarding both OTC and prescription treatments. 02/01/2024 Other hammer toe(s) (acquired), left foot (ICD-10 - M20.42) 02/01/2024 Pain in right toe(s) (ICD-10 - M79.674) 02/01/2024 Pain in left toe(s) (ICD-10 - M79.675) 02/01/2024 Unspecified atherosclerosis of [place] arteries of extremities, bilateral legs (ICD-10 - I70.203) Patient educated on risks and aggravating factors of PVD, including conservative treatment options such as a diet and exercise regimen to aid in slowing progression of vascular disease Plan Of Treatment Treatment Notes Assessment Notes Other hammer toe(s) (acquired), right fo ot The patient was educated regarding how to mechanically stabilize their deformity. The patient was given education about shoe recommendations specific for the condition. The patient was educated about custom orthotics and how appropriate shoes and orthotics can prevent further worsening of the deformity. The patient was educated about how bad shoe habits can worsen the condition. NSAIDS, P.T., injections and other conservative treatments were discussed. Both surgical and non surgical treatments were discussed, but conservative options were emphasized. Tinea unguium Aseptic debridement of elongated thickened nails x 10 using sterile nippers, nails were debrided in length and thickness by 30% utilizing a nail nipper without incident. The patient was educated regarding all treatment options that include topical and oral antifungal treatments. I discussed the options of taking a sample of the nail to confirm diagnosis. Nail clippings were not sent for pathology analysis. The patient was educated why and how the fungal infection evolved in their feet and the patient was given information regarding how to prevent further infection. The patient was told to keep feet dry and change socks. The patient was told to be careful with old shoes and excessive sweating. The patient was educated regarding both OTC and prescription treatments. Unspecified atherosclerosis of [place] arteries of extremities, bilateral legs Patient educated on risks and aggravating factors of PVD, including conservative treatment options such as a diet and exercise regimen to aid in slowing progression of vascular disease Next Appt Details Follow Up: 3 Months, Reason: Provider Name:KRISTIN VILLEGAS, 01/09/2025 08:10:00 AM, [address] [place] [address], [id number], Progress Notes * NACHO MARTEDOB:1945 (79 yo M)Acc No.[id number]:02/01/2024 Patient: NACHO RAMIREZ Provider: Amirah CHAHAL :1945 A ge:78 Y S ex:Male Date:02/01/2024 Address:[address] [place] [address] Subjective: * Chief Complaints: * 1 . *General care. * HPI: H PI: General care P atient presents to the office for at risk foot care. Patient states that their nails are thickened, elongated and painful. Patient states that it is aggravated by shoe gear. Onset is gradual. Patient denies being diabetic., Patient is taking prescription blood thinners., Date last seen by Dr. Dennis was 01/2024., Initials mca. * ROS: G eneral / Constitutional: Patient denies w eakness. R espiratory: Patient denies c hronic cough, shortness of breath, sputum production. M usculoskeletal: Patient complains of h ammertoes. P eripheral Vascular: Patient denies b lanching of skin, cold extremities, decreased sensation in extremities. S kin: Patient complains of f ungal nails, nail changes. ? N eurologic: Patient denies d izziness, gait abnormality, headache. * Medical History: * Medications: T aking Atorvastatin Calcium 80 MG Tablet Oral , Taking Clopidogrel Bisulfate 75 MG Tablet Oral , Taking Ezetimibe 10 MG Tablet Oral , Taking Isosorbide Dinitrate 10 MG Tablet Oral , Taking Metoprolol Tartrate 25 MG Tablet Oral , Taking Pantoprazole Sodium 20 MG Tablet Delayed Release Oral , Taking hydroCHLOROthiazide 25 MG Tablet Oral , Taking Losartan Potassium 100 MG Tablet Oral , Taking Tamsulosin HCl 0.4 MG Capsule Oral Objective: * Vitals: * Examination: P hysical Examination: V ascular: Dorsalis Pedis pulse noted at 1/4 right foot and 1/4 left foot and Posterior Tibial pulse noted at 1/4 right foot and 1/4 left foot, Capillary refill times noted to be less than three seconds x ten, Temperature gradient noted to be warm to cool to bilateral foot, pedal hair present to bilateral foot and no varicosities are noted Dermatologic: there are no open lesions, no signs of active clinical infection, no erythema noted, no ecchymoses, nails are elongated thickened and dystrophic with subungual debris x ten Musculoskeletal: there is pain to palpation onto nail plate x ten, no calf pain noted bilaterally, arch height noted at 2/5 non-weight bearing bilaterally, first metatarsophalangeal joint range of motion 30 deg non-weight bearing bilaterally, flexible fifth digit hammer toe deformity noted to bilateral foot reducible with kelikian push up test Neurology: protective sensation intact to light touch bilateral digits one through five, vibratory sensation intact to first metatarsophalangeal joint bilaterally. Assessment: * Assessment: 1. T inea unguium - B35.1 (Primary) 2 . O ther hammer toe(s) (acquired), right foot - M20.41 3 . O ther hammer toe(s) (acquired), left foot - M20.42 ? 4 . P ain in right toe(s) - M79.674 5 . P ain in left toe(s) - M79.675 6 . U nspecified atherosclerosis of [place] arteries of extremities, bilateral legs - I70.203 Plan: * Treatment: 2. O ther hammer toe(s) (acquired), right foot Notes: The patient was educated regarding how to mechanically stabilize their deformity. The patient was given education about shoe recommendations specific for the condition. The patient was educated about custom orthotics and how appropriate shoes and orthotics can prevent further worsening of the deformity. The patient was educated about how bad shoe habits can worsen the condition. NSAIDS, P.T., injections and other conservative treatments were discussed. Both surgical and non surgical treatments were discussed, but conservative options were emphasized. 3. U nspecified atherosclerosis of [place] arteries of extremities, bilateral legs Notes: Patient educated on risks and aggravating factors of PVD, including conservative treatment options such as a diet and exercise regimen to aid in slowing progression of vascular disease ? * Procedure Codes: 1 1721 DEBRIDE NAIL, 6 OR MORE, Modifiers: Q8 * Follow Up: 3 Months * Billing Information: * Visit Code: * Procedure Codes: 70249 DEBRIDE NAIL, 6 OR MORE. Modifiers: Q8 * Electronic signature of GUILLERMINA CHAHAL DPM on 12/13/2024 at 06:51 PM CDT Sign off status: Pending * Provider: Amirah CHAHAL Date: 04/03/2023 Generated for Omid estrada/Adriana/Cem on: 06:51 PM CDT History and Physical Notes * HPI (History of Present Illness) Category Sub-Category Detail Notes Category Not es HPI General care Patient presents to the office for at risk foot care. Patient states that their nails are thickened, elongated and painful. Patient states that it is aggravated by shoe gear. Onset is gradual. Patient denies being diabetic., Patient is taking prescription blood thinners., Date last seen by Dr. Dennis was 01/2024., Initials mca Examination Category Sub-Category Detail Notes Category Not es Physical Examination Vascular: Dorsalis Pedis pulse noted at 1/4 right foot and 1/4 left foot and Posterior Tibial pulse noted at 1/4 right foot and 1/4 left foot, Capillary refill times noted to be less than three seconds x ten, Temperature gradient noted to be warm to cool to bilateral foot, pedal hair present to bilateral foot and no varicosities are noted Dermatologic: there are no open lesions, no signs of active clinical infection, no erythema noted, no ecchymoses, nails are elongated thickened and dystrophic with subungual debris x ten Musculoskeletal: there is pain to palpation onto nail plate x ten, no calf pain noted bilaterally, arch height noted at 2/5 non-weight bearing bilaterally, first metatarsophalangeal joint range of motion 30 deg non-weight bearing bilaterally, flexible fifth digit hammer toe deformity noted to bilateral foot reducible with kelikian push up test Neurology: protective sensation intact to light touch bilateral digits one through five, vibratory sensation intact to first metatarsophalangeal joint bilaterally
--- OUTSIDE RECORDS SUMMARY | 2024-09-05 03:50 | XMS_ITS ---
Author Organization [facility] Address [address] [place], [place] [address] Care Team Providers Care Ceramic Engineer Name Role Phone YEFRI Austin Unavailable [phone] Shemar Dennis Unavailable Unavailable KRISTIN GEORGE Unavailable [phone] REASON FOR VISIT *General care Medications Medication SIG (Take, Route, Frequency, Duration) Notes Start Date End Date Status Tamsulosin HCl 0.4 MG Oral; Duration: 90 Days Active Losartan Potassium 100 MG Oral; Duration: 90 Days Active Clopidogrel Bisulfate 75 MG Oral; Duration: 90 Days Active Atorvastatin Calcium 80 MG Oral; Duration: 90 Days Active hydroCHLOROthiazide 25 MG Oral; Duration: 90 Days Active Ezetimibe 10 MG Oral; Duration: 90 Days Active Pantoprazole Sodium 20 MG Oral; Duration: 90 Days Active Metoprolol Tartrate 25 MG Oral; Duration: 90 Days Active Isosorbide Dinitrate 10 MG Oral; Duration: 90 Days Active Vital Signs Height 69.00 in 09/05/2024 Weight 152 lbs 09/05/2024 BMI 22.44 kg/m2 09/05/2024 Height-cm 175.26 cm 09/05/2024 Weight-kg 68.95 kg 09/05/2024 Encounters Encounter Location Date Provider Diagnosis [address] [id number] 09/05/2024 KRISTIN GEORGE Tinea unguium B35.1 ; Pain in right toe(s) M79.674 ; Pain in left toe(s) M79.675 ; Atherosclerosis of [place] de[place] arteries of extremities with intermittent claudication, bilateral legs I70.213 and Acquired keratosis [keratoderma] palmaris et plantaris L85.1 Assessments Encounter Date Diagnosis (ICD Code) Assessment Notes Treatment Notes Treatment Clinical Notes Section Notes 09/05/2024 Tinea unguium (ICD-10 - B35.1) FUNGAL TOENAILS: Discussed various treatment options for fungal toenails including debridement, topical antifungals, oral antifungals, toenail avulsion, or toenail matrixectomy. NAIL DEBRIDEMENT: Nails 1-5 Bilateral were debrided extensively with nail nippers and emery board, reducing length and girth to pink healthy tissue with any subungual debris and necrotic tissue removed 09/05/2024 Pain in right toe(s) (ICD-10 - M79.674) 09/05/2024 Pain in left toe(s) (ICD-10 - M79.675) 09/05/2024 Atherosclerosis of c[place] dehe arteries of extremities with intermittent claudication, bilateral legs (ICD-10 - I70.213) Patient educated on risks and aggravating factors of PVD, including conservative treatment options such as a diet and exercise regimen to aid in slowing progression of vascular disease. Check and protect LE bilateral daily. Call if any changes or concerns. 09/05/2024 Acquired keratosis [keratoderma] palmaris et plantaris (ICD-10 - L85.1) Hyperkeratosis x 2: The skin was prepped with isopropyl alcohol. Using a 15-blade scalpel, the hyperkeratotic skin lesions were sharply debrided down to healthy appearing skin. Plan Of Treatment Treatment Notes Assessment Notes Tinea unguium FUNGAL TOENAILS: Discussed various treatment options for fungal toenails including debridement, topical antifungals, oral antifungals, toenail avulsion, or toenail matrixectomy. NAIL DEBRIDEMENT: Nails 1-5 Bilateral were debrided extensively with nail nippers and emery board, reducing length and girth to pink healthy tissue with any subungual debris and necrotic tissue removed Atherosclerosis of c[place] de[place] ar teries of extremities with intermittent claudication, bilateral legs Patient educated on risks and aggravatin g factors of PVD, including conservative treatment options such as a diet and exercise regimen to aid in slowing progression of vascular disease. Check and protect LE bilateral daily. Call if any changes or concerns. Acquired keratosis [keratode rma] palmaris et plantaris Hyperkeratosis x 2: The skin was prepped with isopropyl alcohol. Using a 15-blade scalpel, the hyperkeratotic skin lesions were sharply debrided down to healthy appearing skin. Next Appt Details Follow Up: 10-12 Weeks, Reas on: At Risk Foot care, sooner if problems arise Provider Name:KRISTIN VILLEGAS, 01/09/2025 08:10:00 AM, [address] [place] [address], [phone], Progress Notes * NACHO MARTE JessaDOB:1945 (79 yo M)Acc No.[id number]:09/05/2024 Patient: NACHO RAMIREZ Provider: Koki GEORGE :1945 A ge:78 Y S ex:Male Date:09/05/2024 Address:[address] [place] [address] Subjective: * Chief Complaints: * 1 . [...] seen by Dr. Dennis was 05/2024., Initials [facility]. * ROS: G eneral / Constitutional: Patient denies w eakness. M usculoskeletal: Patient complains of h ammertoes. P eripheral Vascular: Patient denies b lanching of skin, cold extremities, decreased sensation in extremities. S kin: Patient complains of f ungal nails, nail changes. ? N eurologic: Patient denies d izziness, gait abnormality, headache. * Medical History: D iabetic. * Family History: F ather: PRN - [...] List reviewed and reconciled with the patient Objective: * Vitals: S hoe Size: 9, Wt: 152 lbs, Wt-k.95 kg, Ht: 69.00 in, Ht-cm: 175.26 cm, BMI: 22.44 Index, Body Surface Area: 1.83. * Examination: C onstitutional: Constitutional T he patient is awake, alert, well developed, well groomed and well nourished. D ermatologic: Skin findings: S kin is thin, atrophic and lacking pedal hair. , bilateral callus sub 5th mpj nonpainful. Nail pathology: N ails 1, 2, 3, [...] - M79.675 4 . A therosclerosis of cachil dehe arteries of extremities with intermittent claudication, bilateral legs - I70.213 5 . A cquired keratosis [keratoderma] palmaris et plantaris - L85.1 Plan: * Treatment: 2. A therosclerosis of cachil dehe arteries of extremities with intermittent claudication, bilateral legs Notes: Patient educated on risks and aggravating factors of PVD, including conservative treatment options such as a diet and exercise regimen to aid in slowing progression of vascular disease. Check and protect LE bilateral daily. Call if any changes or concerns. 3. A cquired keratosis [keratoderma] palmaris et plantaris Notes: Hyperkeratosis x 2: The skin was prepped with isopropyl alcohol. Using a 15-blade scalpel, the hyperkeratotic skin lesions were sharply debrided down to healthy appearing skin. * Immunizations: Immunization record has been reviewed and updated. * Procedure Codes: 1 1055 TRIM SKIN LESION, Modifiers: Q8 , 88214 DEBRIDE NAIL, 6 OR MORE, Modifiers: 59 , Q8 * Preventive Medicine: Screenings: F all risk screening F all Risk Assessment: N o falls in the past year. * Follow Up: 1 0-12 Weeks (Reason: At Risk Foot care, sooner if problems arise) * Billing Information: * Visit Code: * Procedure Codes: 07572 TRIM SKIN LESION. Modifiers: Q8 19592 DEBRIDE NAIL, 6 OR MORE. Modifiers: 59, Q8 * Electronic signature of MARTINA GEORGE DPM on 12/13/2024 at 06:52 PM CDT Sign off status: Pending * Provider: Koki GEORGE Date: 0 09/05/2024 Generated for Omid estrada/Adriana/Cem on: 1 06:52 PM CDT History and Physical Notes * [...] is thin, at rophic and lacking pedal hair. , bilateral callus sub 5th mpj nonpainful Nail pathology: Nails 1, 2, 3, 4, [...]
--- OUTSIDE RECORDS SUMMARY | 2024-11-07 03:50 | XMS_ITS ---
Author Organization [facility] Address [address] [place], [place] [address] Care Team Providers Care Plastic Welder Name Role Phone YEFRI Austin Unavailable [phone] Shemar Dennis Unavailable Unavailable KRISTIN GEORGE Unavailable [phone] Allergies No Known Allergies REASON FOR VISIT *General care Medications Medication SIG (Take, Route, Frequency, Duration) Notes Start Date End Date Status Metoprolol Tartrate 25 MG Oral; Duration: 90 Days Active Pantoprazole Sodium 20 MG Oral; Duration: 90 Days Active hydroCHLOROthiazide 25 MG Oral; Duration: 90 Days Active Losartan Potassium 100 MG Oral; Duration: 90 Days Active Tamsulosin HCl 0.4 MG Oral; Duration: 90 Days Active Isosorbide Dinitrate 10 MG Oral; Duration: 90 Days Active Clopidogrel Bisulfate 75 MG Oral; Duration: 90 Days Active Ezetimibe 10 MG Oral; Duration: 90 Days Active Atorvastatin Calcium 80 MG Oral; Duration: 90 Days Active Vital Signs Height 69.00 in 11/07/2024 Weight 152 lbs 11/07/2024 BMI 22.44 kg/m2 11/07/2024 Height-cm 175.26 cm 11/07/2024 Weight-kg 68.95 kg 11/07/2024 Encounters Encounter Location Date Provider Diagnosis [address] [id number] 11/07/2024 KRISTIN GEORGE Tinea unguium B35.1 ; Pain in right toe(s) M79.674 ; Pain in left toe(s) M79.675 ; Atherosclerosis of andreafski arteries of extremities with intermittent claudication, bilateral legs I70.213 and Acquired keratosis [keratoderma] palmaris et plantaris L85.1 Assessments Encounter Date Diagnosis (ICD Code) Assessment Notes Treatment Notes Treatment Clinical Notes Section Notes 11/07/2024 Tinea unguium (ICD-10 - B35.1) FUNGAL TOENAILS: Discussed various treatment options for fungal toenails including debridement, topical antifungals, oral antifungals, toenail avulsion, or toenail matrixectomy. NAIL DEBRIDEMENT: Nails 1-5 Bilateral were debrided extensively with nail nippers and emery board, reducing length and girth to pink healthy tissue with any subungual debris and necrotic tissue removed 11/07/2024 Pain in right toe(s) (ICD-10 - M79.674) 11/07/2024 Pain in left toe(s) (ICD-10 - M79.675) 11/07/2024 Atherosclerosis of andreafski arteries of extremities with intermittent claudication, bilateral legs (ICD-10 - I70.213) Patient educated on risks and aggravating factors of PVD, including conservative treatment options such as a diet and exercise regimen to aid in slowing progression of vascular disease. Check and protect LE bilateral daily. Call if any changes or concerns. 11/07/2024 Acquired keratosis [keratoderma] palmaris et plantaris (ICD-10 [...] debris and necrotic tissue removed Atherosclerosis of andreafski ar teries of extremities with intermittent claudication, [...] arise Provider Name:KRISTIN VILLEGAS, 01/09/2025 08:10:00 AM, [address] [place] [address], [phone], Progress Notes * NACHO MARTE JessaDOB:1945 (79 yo M)Acc No.[id number]:11/07/2024 Patient: NACHO RAMIREZ Provider: Koki GEORGE :1945 A ge:78 Y S ex:Male Date:11/07/2024 Address:[address] [place] [address] Subjective: * Chief Complaints: * 1 . [...] Date last seen by Dr. Dennis was 10/2024., Initials nd. * ROS: G eneral / Constitutional: Patient denies w eakness. M usculoskeletal: Patient complains of h ammertoes. P eripheral Vascular: Patient denies b lanching of skin, cold extremities, decreased sensation in extremities. S kin: Patient complains of f ungal nails, nail changes. ? N eurologic: Patient denies d izziness, gait abnormality, headache. * Medical History: D iabetic. * Surgical History: D enies Past Surgical History. * Hospitalization/Major Diagno stic Procedure: D enies Past Hospitalization. * Family History: F ather: PRN - [...] Cancer,,known absent , , :: Diabetes,,known absent . * Social History: M igrated Social History: [...] - M79.675 4 . A therosclerosis of andreafski arteries of extremities with intermittent claudication, bilateral legs - I70.213 5 . A cquired keratosis [keratoderma] palmaris et plantaris - L85.1 Plan: * Treatment: 2. A therosclerosis of andreafski arteries of extremities with intermittent claudication, bilateral [...] debrided down to healthy appearing skin. * Procedure Codes: 1 1721 DEBRIDE NAIL, 6 OR MORE, Modifiers: Q8 * Follow Up: 1 0-12 Weeks (Reason: At Risk Foot care, sooner if problems arise) * Billing Information: * Visit Code: * Procedure Codes: 84856 DEBRIDE NAIL, 6 OR MORE. Modifiers: Q8 * Electronic signature of MARTINA GEORGE DPM on 12/13/2024 at 06:51 PM CDT Sign off status: Pending * Provider: Koki GEORGE Date: 0 11/07/2024 Generated for Omid estrada/Adriana/Cem on: 1 06:51 PM CDT History and Physical Notes [...] Date last seen by Dr. Dennis was 10/2024., Initials nd Examination Category Sub-Category Detail Notes Category Not [...]
--- OUTSIDE RECORDS SUMMARY | 2024-12-12 06:05 | XMS_ITS | Encounter Summary ---
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 [address] [address] Atherosclerotic PVD with intermittent claudication; Other disorder of circulatory system Discharge Disposition: Discharge to home or self care Social History Tobacco Use Types Packs/Day Years Used Date Smoking Tobacco: Former Alcohol Use Standard Drinks/Week Comments Yes 0 (1 standard drink = 0.6 oz pur e alcohol) AUDIT-C Answer Date Recorded Q1: How often do you have a drink containing alc ohol? Monthly or less 12/12/2024 Q2: How many drinks containi ng alcohol do you have on a typical day when you are drinking? 1 or 2 12/12/2024 Q3: How often do you have si x or more drinks on one occasion? Never 12/12/2024 Personal Safety Answer Date Recorded Have you ever been in or are you currently in a harmful physical or emotional relationship or is someone making you feel afraid or unsafe? 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 Gender Identity Not on file Sexual Orientation Not on file documented as of this encounter Last Filed Vital Signs Vital Sign Reading Time Taken Comments Blood Pressure 156/55 12/12/2024 1:25 PM CDT Pulse 51 12/12/2024 1:25 PM CDT Temperature - - Respiratory Rate 18 12/12/2024 1:25 PM CDT Oxygen Saturation 97% 12/12/2024 1:25 PM CDT Inhaled Oxygen Concentration - - Weight - - Height - - Body Mass Index - - documented in this encounter Functional Status * AUDIT-C Score Answer Date of Assessment Author 1 12/12/2024 6:46 AM CDT Kojo Lyle * Question Answer Date of Assessment Author Q1: How often do you have a drink containing alcohol? Monthly or less 12/12/2024 6:46 AM ADRYT Kojo Lyle Q2: How many drinks containing alcohol do you have on a typical day when you are drinking? 1 or 2 12/12/2024 6:46 AM ADRYT Kojo Lyle Q3: How often do you have si x or more drinks on one occasion? Never 12/12/2024 6:46 AM CDT Kojo Lyle documented as of this encounter Discharge Instructions * Discharge Instructions* Pippa Platt RN - 12/12/2024 9:25 AM CDT Do not take home isosorbide today. We gave you your dose. Resume all home medications Monday12/13/24. * Attachments The following attachments cannot be sent through Care Everywhere. * Arteriogram of Legs (Discharge Care) ([place]) * Moderate Sedation (Discharge Care) ([place]) documented in this encounter Medications at Time of Discharge aspirin 81 mg tablet Take one by mouth one time per day 0 0 02/20/2008 atorvastatin (LIPITOR) 80 mg tablet Take 1 tablet (80 mg total) by mouth daily Brilinta 60 mg tablet 09/10/2024 carvediloL (COREG) 3.125 mg tablet 1 tablet (3.125 mg total) 11/25/2024 ezetimibe (ZETIA) 10 mg tablet Take 1 tablet (10 mg total) by mouth daily isosorbide mononitrate ER (IMDUR) 30 mg 24 hr tablet Take 1 tablet by mouth every day in the morning 30 each 1 05/07/2014 Jardiance 10 mg tablet 08/06/2024 losartan (COZAAR) 100 mg tablet 07/23/2024 omega-3 fatty acids-fish oil 300-1,000 mg capsule Take 2 capsules (2 g total) by mouth daily pantoprazole DR (PROTONIX) 20 mg EC tablet Take 1 tablet by mouth two times daily 60 5 03/11/2015 tamsulosin (FLOMAX) 0.4 mg extended release capsule 09/09/2024 nitroglycerin (NITROSTAT) 0.[address] 1 tablet (0.4MG) by sublingual route at the 1st sign of attack; may repeat every 5 min until relief; if pain persists after 3 tablets in 15 min, prompt medical attention is recommended 25 0 09/06/2010 documented as of this encounter Discharge Disposition Disposition Code Departure Means Destination Comment s Discharge to home or self care documented in this encounter H&P Notes * Rolando So MD - 12/12/2024 8:15 AM CDT I have reviewed the H&P, examined the patient, and endorse the findings as written. Plan of Care : Based on the above findings, I consider Dandy Argueta to be an acceptable risk for : Procedure(s): RIGHT LOWER EXTREMITY ANGIOGRAM WITH HALF AND HALF CO2 AND WITH POSSIBLE INTERVENTION ASA 2, mallampati 3 Source Note - Nelly Fleming NP - 11/13/2024 9:15 AM CDT Images from the original note were not included. [facility] Patient ID: Dandy Argueta is a 78 y.o. male Visit Date: 11/13/2024 Chief Complaint Chief Complaint Patient presents with Follow-up BLE claudication C/o worsening claudication SDS HPI Dandy Argueta is a 78 y.o. male w/ a history of hypertension, hyperlipidemia, peripheral vascular disease. Patient is following up today for worsening symptoms of claudication over the past month.States he has now developed rest pain bilaterally and has limiting claudication at the calf level. States it is starting to interfere with his way of life and would like to discuss intervention options. Antiplatelets/Anticoagulants (and reason): - aspirin, Brilinta Previous vascular surgery interventions, including date (surgery, angio,etc): - 2015: History of bilateral angiogram, Dr. Blanco 2010: Bilateral carotid endarterectomy Past Medical History: Diagnosis Date Chronic coronary artery disease Coronary Artery Disease HX OTHER MEDICAL dyslipidemia, PAD HX OTHER MEDICAL Bilateral Carotid Disease s/p b/l CEA HX OTHER MEDICAL Valvular Heart Disease mild Hypertension Hypertension Peripheral vascular disease Peripheral vascular disease Past Surgical History: Procedure Laterality Date CORONARY ARTERY BYPASS GRAFT 2010 Coronary Artery Bypass Graft OTHER SURGICAL HISTORY Carotid Endarterectomy B/L No family history on file. Social History Tobacco Use Smoking status: Former Smokeless tobacco: Not on file Substance and Sexual Activity Drug use: No Sexual activity: Not on file Alcohol Use: Not on file ROS Constitutional: No change in appetite. No recent weight loss. No fevers chills or sweats. HEENT: No trouble swallowing. No tinnitus. Eyes: No visual disturbances Respiratory: No shortness of breath. No cough or sputum production. No wheezing. Cardiovascular: No chest pain. No palpitations. Gastrointestinal: No abdominal pain. No nausea vomiting or diarrhea. Genitourinary: No dysuria. No hematuria. Extremities: No claudication. No rest pain. No lower extremity ulcerations or infections. No significant edema. Musculoskeletal: No joint pains. No back pain. Neurologic: No dizziness. No syncope. No weakness. Skin: No rashes. No discoloration. Hematologic: no bleeding Psychiatric: no anxiety, no behavioral changes, no mood swings PE Constitutional: Alert and oriented HEENT: Head atraumatic and normocephalic Neck is supple No carotid bruits Extraocular movements full, sclerae anicteric Chest: Effort normal. Breath sounds normal. Cardiovascular: S1 and S2 are normal. No murmurs rubs or gallops appreciated. Abdominal: Soft, nontender, no masses. Extremities/Vascular: Bilateral lower extremities are warm perfused with no palpable distal pulses no ischemic ulcerations. Musculoskeletal: Normal range of motion. Neurologic: Cranial nerves 2-12 intact. Strength and sensation intact bilaterally. Skin: Warm and dry. No rashes. No discoloration. Psychiatric: Normal mood and affect. Behavior normal. Judgment normal. IMAGING STUDIES Lower extremity arterial Doppler 11/13/2024 shows bilateral inflow disease with falsely elevated ABIs. Monophasic waveforms distally Diagnoses and all orders for this visit: Mixed hyperlipidemia (Primary) Assessment & Plan: Stable and controlled continue Lipitor Primary hypertension Assessment & Plan: Stable and controlled continue amlodipine isosorbide spironolactone Peripheral vascular disease, unspecified Assessment & Plan: Worsening symptoms of claudication that are now limiting and has developed rest pain. No ischemic ulcerations. Patient is a candidate for a lower extremity angiogram with potential intervention. Discussed procedure with the patient along with its potential risks which include but are not limited tobleeding, infection, nerve injury, limb loss stroke or even . Answered all questions to their satisfaction. They are agreeable and wished to proceed. Nelly Fleming NP This note was generated in part or in whole with voice recognition software. Voice recognition is usually quite accurate but there are petroleum products district supervisor errors that can and often occur. All attempts weremade to correct these errors. I apologize for any typographical errors that were not detected and corrected. Cosigned by Rolando So MD at 11/13/2024 10:03 AM CDT documented in this encounter Nursing Notes * Citlalli Del Valle, RN - 12/06/2024 9:22 AM CDT Images from the original note were not included. [address] [address] Procedure Reminder Checklist: Please arrive to [facility] Outpatient Surgery Department for scheduled procedureon 12/12/24 at 6:30am. Please use Entrance A and follow the signs to the Outpatient Surgery Department to be registered. DO NOT eat or drink after midnight. MEDICATIONS: You may take your medications with enough water to safely swallow them. DO NOT TAKE MORNING OF PROCEDURE: galina rojas HOLD THE FOLLOWING MEDICATIONS: losartan and spironolactone 12/11/24 - 12/13/24 Patient reports not taking farxiga or spironolactone anymore. DO NOT drink alcohol, smoke cigarettes/vapes/e-cigarettes during the 12 hours prior to your procedure. DO NOT use marijuana or take illicit/illegal drugs of any kind at least 24 hours prior to procedure. [place] your teeth morning of procedure. Use mouth wash if available. Do not swallow any liquids whencleansing your mouth. Shower with Antibacterial soap the morning of procedure. Antibacterial Soap Examples: Dial or Safeguard. After showering, do not apply any lotions, colognes, oils, powder, or make-up. --- Hibiclens soap may be purchased at any store or pharmacy that carries soap. Look in the pharmacy/wound care section. If you would like to come to [facility] we can give you a bottle FREE. Park [address] Entr[address] A drive thru and call [phone] and ask for the surgery soap. We will bring it outto your car. VISITOR POLICY: Patients in outpatient/surgical settings may have 2 dedicated visitors; children 12and older may be permitted as one of the 2 visitors, provided they are accompanied by a caregiver as the second visitor. Children can not be left unattended in the hospital setting. Visitors may bring a snack/drink to waiting room. Dress appropriately as our waiting room can be COLD. MORNING OF PROCEDURE PLEASE BRING: UP TO DATE LIST OF MEDICATIONS PHOTO ID INSURANCE CARD COVID VACCINE CARD (IF APPLICABLE) COMFORTABLE CLOTHES CELL PHONE IF DESIRED Do not wear jewelry to the hospital on the day of procedure. Bring glasses and hearing aids (with cases for both), inhalers, and CPAP/BiPAP machine day of procedure. If you will be admitted to the hospital after procedure, feel free to bring a toiletry bag. POST PROCEDURE EXPECTATIONS: Expect to have bedrest time in recovery at the hospital prior to discharge. 2-6 hours post procedure. Arrange for a friend or family member to pick you up from the hospital, drive you home, and assist you if necessary. You will not be allowed to drive home. NO non-medical transport services (buses, taxis, etc.) allowed. A responsible adult must be with you for 24 hours after your procedure. Call your doctor if you develop a rash, fever, cold, or any other signs/symptoms of infection priorto procedure. Any questions/concerns, please call the [facility] at [phone]. documented in this encounter Miscellaneous Notes * Perioperative Nursing Note - Lindy Coon RN - 12/12/2024 1:59 PM CDT Patient reporting cramping in the left lower leg. Notified Dr. So about left leg cramping. said it is okay. * Op Note - Rolando So MD - 12/12/2024 8:44 AM CDT Images from the original note were not included. PATIENT: Dandy Argueta DATE OF : 1945 DATE OF PROCEDURE: 12/12/2024 PRE PROCEDURE DIAGNOSIS: Bilateral extremity peripheral vascular disease POST PROCEDURE DIAGNOSIS: Same PROCEDURE PERFORMED: 1. Conscious sedation with 1 mg versed and 75 mcg fentanyl 2. Access left common femoral artery with SonoSite ultrasound guidance. 3. CO2 diagnostic aortogram pelvic angiogram, contrasted half and half right lower extremity angiogram Sedation Start Time: 859 Sedation End Time: 922 Total Time for Monitored Sedation: 23 minutes Total contrast: 14 mL Nurse supervising sedation: Pancho lyle RN VESSELS SELECTED: 1. Right common femoral artery SURGEON: Rolando So MD INDICATIONS FOR PROCEDURE: The patient is a 79 y.o. male with a history of chronic kidney disease hypertension hyperlipidemia PVD with severe claudication of the lower extremities. It was felt the patient would benefit from angiogram. The procedure, risks, benefits and alternatives were all discussed with the patient pre procedurally which included but not limited to bleeding, hematoma, clotting/thrombosis, distal embolization, nerve injury, need for further vascular intervention, limb ischemia, contrast induced renal failure that could cause temporary or permanent renal failure with need for hemodialysis and informed consent was obtained. DESCRIPTION OF THE PROCEDURE: The patient was brought to the Product Ambassador and placed in supine position. Both groins were then prepped and draped in a usual sterile fashion. A time-out was then performed to identify the correct patient, procedure, and location. The left common femoral artery was then accessed with micropuncture needle with SonoSite guidance. Modified Seldinger technique was used to place a 5-[place] Islander sheath. Modified hook catheter was then placed in the aorta for CO2 aortogram. It was then pulled down to the aortic bifurcation for pelvic angiogram. Using a Glidewire advantage and a modified hook catheter I selected the right common femoral artery. Right lower extremity angiogram was performed with a half half contrast. The catheter and wire were pulled back up over aortic bifurcation exchanged for the Glidewire advantage I exchanged for a Perclose device which was advanced with a Perclose device sutures were deployed the 1st of the sutures did not take due to the calcified artery I rewired and a attempted a 2nd Perclose however still would not take due to the calcified artery the Perclose and wire were removed pressure was held hemostasis was achieved. FINDINGS: AORTOGRAM AND PELVIC ANGIOGRAM: The abdominal aorta is patent. The iliac arteries are patent. All vessels are moderately calcified LOWER EXTREMITY ANGIOGRAM: COMMENTS ON THE RIGHT: The common femoral and profunda femoral were patent the SFA is patent the popliteal artery is patent below-knee popliteal was patent the peroneal is the main runoff down near to the ankle where a collateralizes to the AT. The AT and PT are completely occluded OVERALL PLAN: Single-vessel runoff to the foot. No revascularization otherwise needed. Follow up back in the office in 2-3 weeks. Rolando So MD Vascular Surgery This note was generated in part or in whole with voice recognition software. Voice recognition is usually quite accurate but there are petroleum products district supervisor errors that can and often occur. All attempts weremade to correct these errors. I apologize for any typographical errors that were not detected and corrected. * Perioperative Nursing Note - Kojo Lyle - 12/12/2024 6:05 AM CDT Called and spoke to Eri in OPS to notify of need for bed. Eri will notify charge and contact Product Ambassador when bed assignment has been made. * Perioperative Nursing Note - Kojo Lyle - 12/12/2024 6:05 AM CDT Received call from OPS asking for bedrest end time and home time. Informed OPS of bedrest end time of 1345 and home time of 1445. OPS staff verbalized understanding and stated that they would call back with room number. * Perioperative Nursing Note - Kojo Lyle - 12/12/2024 6:05 AM CDT OPS staff called back and informed label printing machinist that pt. Will be going to room 4. documented in this encounter Plan of Treatment Not on file documented as of this encounter Procedures Procedure Name Priority Date/Time Associated Diagnosis Comments ANGIOGRAPHY UNILATERAL EXTREMITY S&I 00527 Routine 12/12/2024 9:21 AM CDT Atherosclerotic PVD with intermittent claudication EGFR STAT 12/12/2024 6:50 AM CDT Atherosclerotic PVD with intermittent claudication DIFFERENTIAL AUTO STAT 12/12/2024 6:5 0 AM CDT Atherosclerotic PVD with intermittent claudication CBC WITH AUTO DIFFERENTIAL STAT 12/12/2024 6:50 AM CDT Atherosclerotic PVD with intermittent claudication ABO/RH STAT 12/12/2024 6:50 AM CDT Atherosclerotic PVD with intermittent claudication APTT STAT 12/12/2024 6:50 AM CDT Atherosclerotic PVD with intermittent claudication Other disorder of circulatory system PROTIME-INR STAT 12/12/2024 6:50 AM CDT Atherosclerotic PVD with intermittent claudication ANTIBODY SCREEN STAT 12/12/2024 6:50 AM CDT Atherosclerotic PVD with intermittent claudication TYPE AND SCREEN STAT 12/12/2024 6:50 AM CDT Atherosclerotic PVD with intermittent claudication BASIC METABOLIC PANEL STAT 12/12/2024 6:50 AM CDT Atherosclerotic PVD with intermittent claudication documented in this encounter Results * ANGIOGRAPHY UNILATERAL EXTREMITY S&I 16651 (12/12/2024 9:21 AM CDT) Anatomical Region Laterality Modality X-Ray Angiograph y Narrative 12/12/2024 9:25 AM CDT Please see OpNote for result. Rolando So MD CV CARDIAC CATH PROCEDURES Final Result * (ABNORMAL) eGFR (12/12/2024 6:50 AM CDT) eGFR 31(L) >=60 mL/min/1. 73 m2 Comment: Interpretive Data Reference Interval Normal >/= 90 mL/min/1.73m2 Mildly decreased* 60 - 89 mL/min/1.73m2 Mildly to moderately decreased 45 - 59 mL/min/1.73m2 Moderately to severely decreased 30 - 44 mL/min/1.73m2 Severely decreased 15 - 29 mL/min/1.73m2 Kidney Failure < 15 mL/min/1.73m2 *Relative to young adult level Estimated glomerular filtration rate is determined by the 2020 CKD-EPI equation recommended by the National Kidney Foundation (A Unifying Approach to GFR Estimation: Recommendations of the NKF-ASK Task Force on Reassessing the Inclusion of Race in Diagnosing Kidney Disease, JASN 202). The CKD-EPI equation should not be used for patients with unstable renal function and has not been validated in children and those over 70. Current interpretive data was last reviewed 2020. Blood 12/12/2024 6:50 AM CDT 12/12/2024 6:53 AM CDT us Rolando So MD LAB BLOOD ORDERABLES Final Resul t [place] [id number] [facility] Department [place] [address] * (ABNORMAL) Differential, auto (12/12/2024 6:50 AM CDT) Neutrophil abs 5.96 1.50 - 6.50 K/cumm Imm gran abs 0.05 0.00 - 0.10 K/cumm [facility] Lymphocyte abs 1.37 0.80 - 3.30 K/cumm [facility] Monocyte abs 1.04(H) 0.20 - 0.80 K/cumm [facility] Eosinophil abs 0.30 0.00 - 0.50 K/cumm [facility] Basophil abs 0.05 0.00 - 0.10 K/cumm [facility] Neutrophil pct 67.9 % [facility] Comment: Interpretive Data Percent cell count reference ranges are not reported, since discordance with absolute values may lead to misinterpretation of CBC data. Current Interpretive Data was last revised on 2017. Imm gran pct 0.6 % [facility] Comment: Interpretive Data Percent cell count reference ranges are not reported, since discordance with absolute values may lead to misinterpretation of CBC data. Current Interpretive Data was last revised on 2017. Lymphocyte pct 15.6 % [facility] Comment: Interpretive Data Percent cell count reference ranges are not reported, since discordance with absolute values may lead to misinterpretation of CBC data. Current Interpretive Data was last revised on 2017. Monocyte pct 11.9 % [facility] Comment: Interpretive Data Percent cell count reference ranges are not reported, since discordance with absolute values may lead to misinterpretation of CBC data. Current Interpretive Data was last revised on 2017. Eosinophil pct 3.4 % [facility] Comment: Interpretive Data Percent cell count reference ranges are not reported, since discordance with absolute values may lead to misinterpretation of CBC data. Current Interpretive Data was last revised on 2017. Basophil pct 0.6 % [facility] Comment: Interpretive Data Percent cell count reference ranges are not reported, since discordance with absolute values may lead to misinterpretation of CBC data. Current Interpretive Data was last revised on 2017. Blood 12/12/2024 6:50 AM CDT 12/12/2024 6:53 AM CDT Rolando So MD LAB BLOOD ORDERABLES Final Resul t Performing Organization Address [facility] de Phone Number [address] [place] [address] * Antibody screen (12/12/2024 6:50 AM CDT) [place], indirect, Gel Interpretation Negative ABSC Blood 12/12/2024 6:50 AM CDT 12/12/2024 6:53 AM CDT Narrative [facility] - 12/12/2024 7:29 AM CDT Has the patient had Daratumumab or Isatuximab in the past 6 months?->Unknown Result [facility] Rolando oS MD LAB BLOOD BANK TEST ORDERABLES F inal Result Performing Organization Address [facility] de Phone Number [address] [place] [address] * ABO/Rh (12/12/2024 6:50 AM CDT) ABO/Rh O Positive Blood 12/12/2024 6:50 AM CDT 12/12/2024 6:53 AM CDT Narrative [facility] - 12/12/2024 7:29 AM CDT Has the patient had Daratumumab or Isatuximab in the past 6 months?->Unknown Rolando So MD LAB BLOOD BANK TEST ORDERABLES F inal Result Performing Organization Address [facility] Co de Phone Number [address] Department [place] [address] * (ABNORMAL) CBC with auto differential (12/12/2024 6:50 AM CDT) [facility] WBC 8.77 3.80 - 9.90 K/cumm Hgb 14.4 13.0 - 17.5 g/dL [facility] Hct 43.2 38.9 - 50.3 % [facility] Plt 136(L) 150 - 400 K/cumm [facility] MPV 11.1 9.1 - 12.3 fL [facility] RBC 4.75 4.30 - 5.80 M/cumm [facility] MCV 90.9 81.3 - 96.4 fL [facility] MCH 30.3 27.1 - 33.3 pg [facility] MCHC 33.3 32.3 - 35.7 g/dL [facility] RDW CV 14.3 11.1 - 14.9 % [facility] RDW SD 47.8 35.7 - 48.1 fL [facility] NRBC abs 0.00 0.00 - 0.01 K/cumm [facility] Blood 12/12/2024 6:50 AM CDT 12/12/2024 6:53 AM CDT Narrative [facility] - 12/12/2024 7:00 AM CDT If most recent labs were drawn prior to 4 AM, draw only prior to initiating procedure. Rolando So MD LAB BLOOD ORDERABLES Final Resul t [place] [address] [facility] [address] * aPTT (12/12/2024 6:50 AM CDT) [facility] aPTT 31 22 - 37 sec Comment: Interpretive data aPTT test has not been evaluated for monitoring heparin therapy. The anti-Xa is the preferred test. Current interpretive data was last revised on 2019. Blood 12/12/2024 6:50 AM CDT 12/12/2024 6:53 AM CDT Rolando So MD LAB BLOOD ORDERABLES Final Resul t Performing Organization Address City/[facility]/ZIP Co de Phone Number KAYLIE [address] [place] [address] * (ABNORMAL) Basic metabolic panel (12/12/2024 6:50 AM CDT) Sodium 137 135 - 145 mmol/L Potassium, pl 4.6 3.3 - 4.9 mmol/L [facility] Comment:Hemolyzed; Potassium value may be falsely elevated by as much as 1.0 mmol/L. Suggest redraw and reanalysis. Chloride 109 97 - 110 mmol/L [facility] CO2 18(L) 22 - 32 mmol/L [facility] Anion gap 10 2 - 15 mmol/L [facility] BUN 40(H) 6 - 25 mg/dL [facility] Creatinine 2.13(H) 0.80 - 1.30 mg/dL [facility] Glucose 122 70 - 199 mg/dL [facility] Comment: Interpretive Data Fasting glucose >/= 126 mg/dl is diagnostic for diabetes. Fasting is defined as no caloric intake for at least 8 hours. Fasting glucose between 100 mg/dl to 125 mg/dl is diagnostic of prediabetes. In a patient with classic symptoms of hyperglycemia or hyperglycemic crisis, a random glucose >/= 200 mg/dl is diagnostic for diabetes. In the absence of unequivocal hyperglycemia, results should be confirmed by repeat testing. The classification and Diagnosis of Diabetes Diabetes Care 2021; 46: S19-S40. Current interpretive data was last revised 2022. Calcium 9.1 8.5 - 10.3 mg/dL [facility] Blood 12/12/2024 6:50 AM CDT 12/12/2024 6:53 AM CDT Rolando So MD LAB BLOOD ORDERABLES Final Resul t KAYLIE [address] [facility] [place] [address] * (ABNORMAL) Protime-INR (12/12/2024 6:50 AM CDT) PT 14.80(H) 12.00 - 14.60 sec INR 1.15 0.90 - 1.20 KAYLIE ARORA Comment: Interpretive data Oral anticoagulant therapeutic ranges: Venous thromboembolism prophylaxis or treatment: 2.0-3.0 CARDIOLOGY Standard range: 2.0-3.0 High-intensity range: 2.5-3.5 Refer to indication-specific guidelines for appropriate target ranges for prosthetic heart valve replacement. Current interpretive data was last revised on 2019. Blood 12/12/2024 6:50 AM CDT 12/12/2024 6:53 AM CDT us Rolando So MD LAB BLOOD ORDERABLES Final Resul t KAYLIE ARORA [address] [facility] Department [place] [address] documented in this encounter Visit Diagnoses Diagnosis Atherosclerotic PVD with intermittent claudication- Primary Atherosclerotic PVD with intermittent claudication Other disorder of circulatory system Atherosclerotic PVD with intermittent claudication documented in this encounter Admitting Diagnoses Diagnosis Atherosclerotic PVD with intermittent claudication documented in this encounter Discontinued Medications Medication Sig Discontinue Reason Start Date End Da te Farxiga 10 mg tablet Therapy completed 08/27/2024 spironolactone (ALDACTONE) 25 mg tablet Therapy completed 202412/06/2024 documented as of this encounter Historical Medications * This list may reflect changes made after this encounter. carvediloL (COREG) 3.125 mg tablet 1 tablet (3.125 mg total) 11/25/2024 added in this encounter Active and Recently Administered Medications Times are shown in CDT. PRN Medication Order 12/10/2024 12/11/2024 12/12/2024 fentaNYL (SUBLIMAZE) preservative free injection (CANCELED) Code/trauma/sedation medication, Starting on Alicia 12/12/24 at 0857, Intra-Procedure (CV) 0857 (Given - Provid er: Kojo Lyle)0914 (Given - Provider: Kojo Lyle) ioversoL (OPTIRAY 320) injection (CANCELED) Code/trauma/sedation medication, Starting on Alicia 12/12/24 at 0918, Intra-Procedure (CV) 0918 (Given - Provid er: Rolando So MD) lidocaine (XYLOCAINE) 10 mg/mL (1 %) injection (CANCELED) Code/trauma/sedation medication, Starting on Alicia 12/12/24 at 0859, Intra-Procedure (CV), Indications: Administration of Local Anesthesia 0859 (Given - Provid er: Rolando So MD) midazolam (VERSED) 1 mg/mL injection (CANCELED) Administer over 2 Minutes, Code/trauma/sedation medication, Starting on Alicia 12/12/24 at 0857, Intra-Procedure (CV) 0857 (Given - Provid er: Kojo Lyle) documented in this encounter Orders Medications Ordered That Ji ht Not Have Been Administered Count Last Ordered Date First Ordered Date Carrier Fluids for Secondary Infusion - 0.9% Sodium Chloride 1 12/12/2024 fentaNYL (SUBLIMAZE) preserv ative free injection 1 12/12/2024 ioversoL (OPTIRAY 320) injection 1 12/13/19 25 lidocaine (XYLOCAINE) 10 mg/ mL (1 %) injection 1 12/12/2024 midazolam (VERSED) 1 mg/mL injection 1 11/21 sodium chloride 0.9% flush 0.5-20 mL 2 11/21 sodium chloride 0.9% infusion 3 12/12/2024 Nursing Count Last Ordered Date First Orde red Date TELEMETRY MONITORING 1 12/12/2024 Discharge Count Last Ordered Date First Orde red Date DISCHARGE PATIENT 1 12/12/2024 documented in this encounter Care Teams Deck Officer Relationship Specialty Start Date End Date Shemar Dennis MD [address] [facility] [address] [place] [address] PCP - General 11/11/10 documented as of this encounter
--- OUTSIDE RECORDS SUMMARY | 2024-12-12 08:30 | XMS_ITS | Encounter Summary ---
Author Organization [facility] Address [address] [place] [address] Care Team Providers Care Assistant Professor Of Forestry Name Role Phone Shemar Dennis MD Primary Care Provider Reason for Visit * Auth/Cert (Routine) Specialty Diagnoses / Procedures Referred By Contac t Referred To Contact Diagnoses Atherosclerotic PVD with intermittent claudication Atherosclerotic PVD with intermittent claudication [I70.219] Procedures MN INTRODUCTION CATHETER AORTA CHG AORTOGRAPHY ABDOMINAL SERIALOGRAPHY RS&I CHG ANGIOGRAPHY EXTREMITY UNILATERAL RS&I RIGHT LOWER EXTREMITY ANGIOGRAM WITH HALF AND HALF CO2 AND WITH POSSIBLE INTERVENTION Referral ID Status Reason Start Date Expiration Date Visits Re quested Visits Authorized [id number] 1 1 Encounter Details Date Type Department Care Team (Late st Contact Info) Description 12/12/2024 8:30 AM CDT - 12/12/2024 9:30 AM CDT Surgery [facility] [employer] [facility] [address] [place] [address] Rolando So MD [address] [place] [address] [address] RIGHT LOWER EXTREMITY ANGIOGRAM WITH HALF AND HALF CO2 AND WITH POSSIBLE INTERVENTION Surgery Details Date/Time Status Location OR Service Patient Class Case Cl ass Case Type Trauma Case? 12/12/2024 8:30 AM Posted [facility]ICAL REGISTERED NURSE CCL 2 Vascular Outpatient Elective Panel 1 Procedure LRB Anes Op Region Wound Class Comments RIGHT LOWER EXTREMITY ANGIOGRAM WITH HALF AND HALF CO2 AND WITH POSSIBLE INTERVENTION Right Conscious Sedation PER DR. MENJIVAR (NEPHROLOGY) PATIENT WILL NEED IVF OFNORMAL SALINE 75ML/HR ONE HOUR BEFORE THE PROCEDURE, DURING, AND AFTER Surgeon Surgeon Role Service Panel Rolando So MD Primary Vascular 1 documented in this encounter Social History Tobacco Use Types Packs/Day Years [...] on file Legal Sex Male 3:46 AM CHIP [employer] Gender Identity Not on file Sexual Orientation Not on file documented as of this encounter Functional Status * AUDIT-C Score Answer Date of Assessment Author 1 12/12/2024 6:46 AM ADRYT Kojo Lyle * Question Answer Date of Assessment Author Q1: How often do you have a drink containing alcohol? Monthly or less 12/12/2024 6:46 AM ADRYT Kojo Lyle Q2: How many drinks containing alcohol do you have on a typical day when you are drinking? 1 or 2 12/12/2024 6:46 AM Kojo Jeronimo Q3: How often do you have si x or more drinks on one occasion? Never 12/12/2024 6:46 AM Kojo Jeronimo documented as of this encounter Discharge Instructions * Discharge Instructions* Pippa Platt RN - 12/12/2024 9:25 AM CDT Do not take home isosorbide today. We gave you your dose. Resume all home medications Monday12/13/24. * Attachments The following attachments cannot be sent through Care Everywhere. * Arteriogram of Legs (Discharge Care) (Jamaican) * Moderate Sedation (Discharge Care) (Jamaican) documented in this encounter Medications at Time [...] not included. [facility] Patient ID: Dandy Argueta is a 78 [...] is usually quite accurate but there are appraisal specialist errors that can and often occur. All attempts weremade to correct these errors. I apologize for any typographical errors that were not detected and corrected. Cosigned by Rolando So MD at 11/13/2024 10:03 AM CDT documented in this encounter Nursing Notes * Citlalli Del Valle RN - 12/06/2024 9:22 AM CDT Images from the original note were not included. [address] [address] Procedure Reminder Checklist: Please arrive to [facility] Outpatient Surgery Department for scheduled procedureon 12/12/24 [...] at least 24 hours prior to procedure. [place] your teeth morning of procedure. Use mouth [...] If you would like to come to [facility] we can give you a bottle FREE. Park Under[address] Entr[address] A drive thru and call [phone] and ask for the surgery soap. We [...] priorto procedure. Any questions/concerns, please call the [facility] at [phone]. documented in this encounter Miscellaneous Notes * [...] PROCEDURE: The patient was brought to the Motor Vehicle Light Assembler and placed in supine position. Both groins were then prepped and draped in a usual sterile fashion. A time-out was then performed to identify the correct patient, procedure, and location. The left common femoral artery was then accessed with micropuncture needle with SonoSite guidance. Modified Seldinger technique was used to place a 5-Polish sheath. Modified hook catheter was then placed [...] is usually quite accurate but there are appraisal specialist errors that can and often occur. All attempts weremade to correct these errors. I apologize for any typographical errors that were not detected and corrected. * Perioperative Nursing Note - Kojo Lyle - 12/12/2024 6:05 AM CDT Called and spoke to Eir in OPS to notify of need for bed. Eri will notify charge and contact Motor Vehicle Light Assembler when bed assignment has been made. * [...] OPS staff called back and informed label sewer that pt. Will be going to room 4. documented in this encounter Plan of Treatment Not on file documented as of this encounter Procedures Procedure Name Priority Date/Time Associated Diagnosis Comments ANGIOGRAPHY UNILATERAL EXTREMITY S&I 89020 Routine 12/12/2024 9:21 AM CDT Atherosclerotic PVD [...] encounter Results * ANGIOGRAPHY UNILATERAL EXTREMITY S&I 87930 (12/12/2024 9:21 AM CDT) Anatomical Region Laterality Modality X-Ray Angiograph y Narrative 12/12/2024 9:25 AM CDT Please see OpNote for result. us Rolando So MD CV CARDIAC CATH PROCEDURES [...] of Race in Diagnosing Kidney Disease, JASN 2020). The CKD-EPI equation should not be used for patients with unstable renal function and has not been validated in children and those over 70. Current interpretive data was last reviewed 2020. Blood 12/12/2024 6:50 AM CDT 12/12/2024 6:53 AM CDT us Rolnado So MD LAB BLOOD ORDERABLES Final Resul t [facility] [address] [facility] Department [place] [address] * (ABNORMAL) Differential, auto (12/12/2024 6:50 AM CDT) Neutrophil abs 5.96 1.50 - 6.50 K/cumm Imm gran abs 0.05 0.00 - 0.10 K/cumm [facility] Lymphocyte abs 1.37 0.80 - 3.30 K/cumm [facility] Monocyte abs 1.04(H) 0.20 - 0.80 K/cumm [facility] Eosinophil abs 0.30 0.00 - 0.50 K/cumm [facility] Basophil abs 0.05 0.00 - 0.10 K/cumm [facility] Neutrophil pct 67.9 % [facility] Comment: Interpretive Data Percent cell count reference ranges are not reported, since discordance with absolute values may lead to misinterpretation of CBC data. Current Interpretive Data was last revised on 2017. Imm gran pct 0.6 % [facility] Comment: Interpretive Data Percent cell count reference ranges are not reported, since discordance with absolute values may lead to misinterpretation of CBC data. Current Interpretive Data was last revised on 2017. Lymphocyte pct 15.6 % [facility] Comment: Interpretive Data Percent cell count reference ranges are not reported, since discordance with absolute values may lead to misinterpretation of CBC data. Current Interpretive Data was last revised on 2017. Monocyte pct 11.9 % [facility] Comment: Interpretive Data Percent cell count reference ranges are not reported, since discordance with absolute values may lead to misinterpretation of CBC data. Current Interpretive Data was last revised on 2017. Eosinophil pct 3.4 % [facility] Comment: Interpretive Data Percent cell count reference ranges are not reported, since discordance with absolute values may lead to misinterpretation of CBC data. Current Interpretive Data was last revised on 2017. Basophil pct 0.6 % [facility] Comment: Interpretive Data Percent cell count reference ranges are not reported, since discordance with absolute values may lead to misinterpretation of CBC data. Current Interpretive Data was last revised on 2017. Blood 12/12/2024 6:50 AM CDT 12/12/2024 6:53 AM CDT Rolando So MD LAB BLOOD ORDERABLES Final Resul t Performing Organization Address City/[facility] Co de Phone Number [address] [employer] [address] * Antibody screen (12/12/2024 6:50 AM CDT) [place], indirect, Gel Interpretation Negative ABSC Blood 12/12/2024 6:50 AM CDT 12/12/2024 6:53 AM CDT Narrative [facility] - 12/12/2024 7:29 AM CDT Has the patient had Daratumumab or Isatuximab in the past 6 months?->Unknown Result [facility] Rolando So MD LAB BLOOD BANK TEST ORDERABLES F inal Result Performing Organization Address City/[facility] Co de Phone Number [address] [employer] [address] * ABO/Rh (12/12/2024 6:50 AM CDT) ABO/Rh O Positive Blood 12/12/2024 6:50 AM CDT 12/12/2024 6:53 AM CDT [facility] 12/12/2024 7:29 AM CDT Has the patient had Daratumumab or Isatuximab in the past 6 months?->Unknown Rolando So MD LAB BLOOD BANK TEST ORDERABLES F inal Result Performing Organization Address [facility] de Phone Number [address] [address] * (ABNORMAL) CBC with auto differential (12/12/2024 6:50 AM CDT) [facility] WBC 8.77 3.80 - 9.90 K/cumm Hgb 14.4 13.0 - 17.5 g/dL [facility] Hct 43.2 38.9 - 50.3 % [facility] Plt 136(L) 150 - 400 K/cumm [facility] MPV 11.1 9.1 - 12.3 fL [facility] RBC 4.75 4.30 - 5.80 M/cumm [facility] MCV 90.9 81.3 - 96.4 fL [facility] MCH 30.3 27.1 - 33.3 pg [facility] MCHC 33.3 32.3 - 35.7 g/dL [facility] RDW CV 14.3 11.1 - 14.9 % [facility] RDW SD 47.8 35.7 - 48.1 fL [facility] NRBC abs 0.00 0.00 - 0.01 K/cumm [facility] Blood 12/12/2024 6:50 AM CDT 12/12/2024 6:53 AM CDT Narrative [facility] - 12/12/2024 7:00 AM CDT If most recent labs were drawn prior to 4 AM, draw only prior to initiating procedure. Rolando So MD LAB BLOOD ORDERABLES Final Resul t Performing Organization Address [facility] Co de Phone Number CHARLES[address] [place] [address] * aPTT (12/12/2024 6:50 AM CDT) [facility] aPTT 31 22 - 37 sec Comment: Interpretive data aPTT test has not been evaluated for monitoring heparin therapy. The anti-Xa is the preferred test. Current interpretive data was last revised on 2019. Blood 12/12/2024 6:50 AM CDT 12/12/2024 6:53 AM CDT Rolando So MD LAB BLOOD ORDERABLES Final Resul t Performing Organization Address City/[facility]/ZIP Co de Phone Number KAYLIE [address] [facility] [email or web address] [address] * (ABNORMAL) Basic metabolic panel (12/12/2024 6:50 AM CDT) Sodium 137 135 - 145 mmol/L Potassium, pl 4.6 3.3 - 4.9 mmol/L [facility] Comment:Hemolyzed; Potassium value may be falsely elevated by as much as 1.0 mmol/L. Suggest redraw and reanalysis. Chloride 109 97 - 110 mmol/L [facility] CO2 18(L) 22 - 32 mmol/L [facility] Anion gap 10 2 - 15 mmol/L [facility] BUN 40(H) 6 - 25 mg/dL [facility] Creatinine 2.13(H) 0.80 - 1.30 mg/dL [facility] Glucose 122 70 - 199 mg/dL [facility] Comment: Interpretive Data Fasting glucose >/= 126 [...] 2022. Calcium 9.1 8.5 - 10.3 mg/dL [facility] Blood 12/12/2024 6:50 AM CDT 12/12/2024 6:53 AM CDT Rolando So MD LAB BLOOD ORDERABLES Final Resul t Performing Organization Address City/[facility]/ZIP Co de Phone Number KAYLIE [address] [facility] [employer] [place] [address] * (ABNORMAL) Protime-INR (12/12/2024 6:50 AM CDT) [...] BLOOD ORDERABLES Final Resul t KAYLIE ARORA [address] [facility] Department [place] [address] documented in this encounter Visit Diagnoses Diagnosis Atherosclerotic PVD with intermittent claudication- Primary Atherosclerotic PVD with intermittent claudication Other disorder of circulatory system Atherosclerotic PVD with intermittent claudication documented in this encounter Admitting Diagnoses Diagnosis Atherosclerotic PVD with intermittent claudication documented in this encounter Administered Medications Inactive Administered Medications - up to 3 most recent administrations Medication Order MAR Action Action Date Dose Rate Site fentaNYL (SUBLIMAZE) preservative free injection Code/trauma/sedation medication, Starting on Alicia 12/12/24 at 0857, Intra-Procedure (CV) Given 12/12/2024 9:14 AM CDT 25 mcg Given 12/12/2024 8:57 AM CDT 50 mcg ioversoL (OPTIRAY 320) injection Code/trauma/sedation medication, Starting on Alicia 12/12/24 at 0918, Intra-Procedure (CV) Given 12/12/2024 9:18 AM CDT 14 mL lidocaine (XYLOCAINE) 10 mg/mL (1 %) injection Code/trauma/sedation medication, Starting on Alicia 12/12/24 at 0859, Intra-Procedure (CV), Indications: Administration of Local AnesthesiaIndications:Administration of Local Anesthesia Given 12/12/2024 8:59 AM CDT 16 mL Left Groin midazolam (VERSED) 1 mg/mL injection Administer over 2 Minutes, Code/trauma/sedation medication, Starting on Alicia 12/12/24 at 0857, Intra-Procedure (CV) Given 12/12/2024 8:57 AM CDT 1 mg documented in this encounter Discontinued Medications Medication [...] Infusion - 0.9% Sodium Chloride 1 12/12/2024 sodium chloride 0.9% flush 0.5-20 mL 2 11/21 sodium chloride 0.9% infusion 3 12/12/2024 Nursing Count Last Ordered Date First Orde red Date TELEMETRY MONITORING 1 12/12/2024 Discharge Count Last Ordered Date First Orde red Date DISCHARGE PATIENT 1 12/12/2024 documented in this encounter Care Teams Assistant Professor Of Forestry Relationship Specialty Start Date End Date Shemar Dennis MD [address] [facility] [address] [place] [address] PCP - General 11/11/10 documented as of this encounter
--- NOTE | ~2024-12-13 | XR_ITS ---
XR chest 1V portable INDICATION:AMS . REFERENCE: None FINDINGS: A single AP of the chest demonstrates normal heart size. The lungs are clear. There is no evidence of pneumothorax or pleural effusion. IMPRESSION: No acute pulmonary findings. Reviewed, dictated and finalized at location S.
[2024-12-13 18:52] VITALS: BP 85/48; PULSE 88; RESP 18; O2SAT 100
--- OUTSIDE RECORDS SUMMARY | 2024-12-13 18:52 | XMS_ITS | Patient Health Record ---
Author Organization [facility] Address [address] [place], [place] [address] Care Team Providers Care Senior Solutions Engineer Name Role Phone YEFRI Austin Unavailable [phone] Shemar Dennis Unavailable Unavailable DELIA MARTINEZ Unavailable [phone] ARCHIE CHAHAL Unavailable [phone] KRISTIN GEORGE Unavailable [phone] Allergies No Known Allergies Reason For Referral No Information Medications Medication SIG (Take, Route, Frequency, Duration) Notes Start Date End Date Status Isosorbide Dinitrate 10 MG Oral; Duration: 90 Days Active Metoprolol Tartrate 25 MG Oral; Duration: 90 Days Active Clopidogrel Bisulfate 75 MG Oral; Duration: 90 Days Active Ezetimibe 10 MG Oral; Duration: 90 Days Active Pantoprazole Sodium 20 MG Oral; Duration: 90 Days Active hydroCHLOROthiazide 25 MG Oral; Duration: 90 Days Active Losartan Potassium 100 MG Oral; Duration: 90 Days Active Atorvastatin Calcium 80 MG Oral; Duration: 90 Days Active Tamsulosin HCl 0.4 MG Oral; Duration: 90 Days Active Vital Signs Height-cm 175.26 cm 11/07/2024 Weight-kg 68.95 kg 11/07/2024 Height 69.00 in 11/07/2024 Weight 152 lbs 11/07/2024 BMI 22.44 kg/m2 11/07/2024 Encounters Encounter Location Date Provider Diagnosis [address] [id number] 02/01/2024 ARCHIE CHAHAL Other hammer toe(s) (acquired), right foot M20.41 ; Tinea unguium B35.1 ; Other hammer toe(s) (acquired), left foot M20.42 ; Pain in right toe(s) M79.674 ; Pain in left toe(s) M79.675 and Unspecified atherosclerosis of [place] arteries of extremities, bilateral legs I70.[address] [id number] 07/04/2024 KRISTIN GEORGE Tinea unguium B35.1 ; Pain in right toe(s) M79.674 ; Pain in left toe(s) M79.675 and Atherosclerosis of [place] arteries of extremities with intermittent claudication, bilateral legs I70.[address] [id number] 09/05/2024 KRISTIN GEORGE Tinea unguium B35.1 ; Pain in right toe(s) M79.674 ; Pain in left toe(s) M79.675 ; Atherosclerosis of [place] arteries of extremities with intermittent claudication, bilateral legs I70.213 and Acquired keratosis [keratoderma] palmaris et plantaris L85.[address] [id number] 11/07/2024 KRISTIN GEORGE Tinea unguium B35.1 ; Pain in right toe(s) M79.674 ; Pain in left toe(s) M79.675 ; Atherosclerosis of [place] arteries of extremities with intermittent claudication, bilateral legs I70.213 and Acquired keratosis [keratoderma] palmaris et plantaris L85.[address] [id number] 04/11/2024 DELIA MARTINEZ Tinea unguium B35.1 ; Pain in right toe(s) M79.674 ; Pain in left toe(s) M79.675 and Atherosclerosis of [place] arteries of extremities with intermittent claudication, bilateral legs I70.213 Assessments Encounter Date Diagnosis (ICD Code) Assessment Notes Treatment Notes Treatment Clinical Notes Section Notes 02/01/2024 Tinea unguium (ICD-10 - B35.1) Aseptic [...] in right toe(s) (ICD-10 - M79.674) 09/05/2024 Tinea unguium (ICD-10 - B35.1) FUNGAL [...] in right toe(s) (ICD-10 - M79.674) 11/07/2024 Tinea unguium (ICD-10 - B35.1) FUNGAL [...] in left toe(s) (ICD-10 - M79.675) 09/05/2024 Pain in left toe(s) (ICD-10 - M79.675) 07/04/2024 Pain in left toe(s) (ICD-10 - M79.675) 04/11/2024 Pain in left toe(s) (ICD-10 - M79.675) 02/01/2024 Other hammer toe(s) (acquired), left foot (ICD-10 - M20.42) 02/01/2024 Pain in right toe(s) (ICD-10 - M79.674) 04/11/2024 Atherosclerosis of [place] arteries of extremities with intermittent claudication, bilateral legs (ICD-10 - I70.213) 07/04/2024 Atherosclerosis of [place] arteries of extremities with intermittent claudication, bilateral legs (ICD-10 - I70.213) 09/05/2024 Atherosclerosis of [place] arteries of extremities with intermittent claudication, bilateral legs (ICD-10 - I70.213) Patient educated on risks and aggravating factors of PVD, including conservative treatment options such as a diet and exercise regimen to aid in slowing progression of vascular disease. Check and protect LE bilateral daily. Call if any changes or concerns. 11/07/2024 Atherosclerosis of [place] arteries of extremities with intermittent claudication, bilateral [...] sharply debrided down to healthy appearing skin. 09/05/2024 Acquired keratosis [keratoderma] palmaris et plantaris (ICD-10 - L85.1) Hyperkeratosis x 2: The skin was prepped with isopropyl alcohol. Using a 15-blade scalpel, the hyperkeratotic skin lesions were sharply debrided down to healthy appearing skin. 02/01/2024 Pain in left toe(s) (ICD-10 - M79.675) 02/01/2024 Unspecified atherosclerosis of [place] arteries of extremities, bilateral legs (ICD-10 - I70.203) Patient educated on risks and aggravating factors of PVD, including conservative treatment options such as a diet and exercise regimen to aid in slowing progression of vascular disease Plan Of Treatment Next Appt Details Provider Name:KRISTIN VILLEGAS, 01/09/2025 08:10:00 AM, [address] [place] [address], [id number], Insurance Providers Payer Name Payer Address Payer Phone Subscriber Number Group Number Insured Name Patient Relationship to Insured Coverage Start Date Coverage End Date Medicare Part [place] [address] [place] [address] [id number] NACHO MARTE Self - patient is the insured [facility] ([facility]) ATTN CLAIMS [address] [place] [address] [id number] NACHO MARTE Self - patient is the insured Medical (General) History Medical History History ICD Code Diabetic
--- OUTSIDE RECORDS SUMMARY | 2024-12-13 18:52 | XMS_ITS | Encounter Summary ---
Author Organization [facility] Address [facility]ly [facility] [place] [address] Care Team Providers Care Composition Tile Layer Name Role Phone Willi Bray MD Unavailable [phone] Cristi Magallanes MD Unavailable Unavailable Shemar Dennis MD Primary Care Provider [phone] Encounter Details Date Type Department Care Team (Late st Contact Info) Description 11/26/2024 Community Orders [facility] EPICCARE LINK Harvinder Frederick, DO [address] [place] [phone] Social History Tobacco Use Types Packs/Day Years Used Date Smoking Tobacco: Former Alcohol Use Standard Drinks/Week Comments Yes 0 (1 standard drink = 0.6 oz pur e alcohol) Sex and Gender Information Value Date Recorded Sex Assigned at Male 07/01/2024 4:27 PM CDT Legal Sex Male 5:07 PM CDT Gender Identity Not on file Sexual Orientation Not on file documented as of this encounter Plan of Treatment Not on file documented as of this encounter Visit Diagnoses Diagnosis Cardiomyopathy (CMS/HCC HHS/HCC)- Primary Cardiomyopathy documented in this encounter Care Teams Composition Tile Layer Relationship Specialty Start Date End Date Shemar Dennis MD [address] [place] [address] PCP - General FAMILY PRACTICE 12/02/15 Willi Bray MD [address] [place] [address] Berkley Soa Integration Architect CARDIOVASCULAR DISEASE 10/18/15 Cristi Magallanes MD [address] [place] [address] Marva Soa Integration Architect CARDIOVASCULAR DISEASE 11/16/15 documented as of this encounter
--- OUTSIDE RECORDS SUMMARY | 2024-12-13 18:52 | XMS_ITS | Clinical Summary ---
Author Organization [facility] Address [address] [place] [address] Care Team Providers Care Thermostatic Controls Supervisor Name Role Phone Unavailable Primary Care Provider Unavailabl e Source Comments [facility],non-owned Affiliates and Associated Physician Practices is amultiple site organization consisting of ambulatory clinics and hospital sitesin [place], [place], [place] and [place]. This disclosure is being madepursuant to the Care Everywhere program and may not contain all information available regarding this patient. Last updated 17.[facility] Allergies No known active allergies Medications * [...] on file Legal Sex Male 4:31 AM RENAL DIETITIAN Gender Identity Not on file Sexual Orientation Not on file Last Filed Vital Signs Vital Sign Reading Time Taken Comments Blood Pressure 123/64 04/28/2009 8:00 AM RENAL DIETITIAN Pulse 100 04/28/2009 8:00 AM RENAL DIETITIAN Temperature 36.9 C (98.5 F) 04/28/2009 12:00 AM RENAL DIETITIAN Respiratory Rate 13 04/28/2009 7:00 AM RENAL DIETITIAN Oxygen Saturation 99% 04/28/2009 8:00 AM RENAL DIETITIAN Inhaled Oxygen Concentration - - Weight 78.1 kg (172 lb 2.9 oz) 04/28/2009 8:00 A M RENAL DIETITIAN Height 175.3 cm (5' 9) 04/28/2009 8:00 AM RENAL DIETITIAN Body Mass Index 25.43 04/28/2009 8:00 AM RENAL DIETITIAN Plan of Treatment Health Maintenance Due Date Last Done Comments DTAP/TDAP/TD VACCINES (1 - Tdap) 12/08/1962 PNEUMOCOCCAL VACCINE 50+ (1 of 1 - PCV) 12/08/1993 ZOSTER VACCINE (1 of 2) 12/08/1993 Respiratory Syncytial Virus (RSV) Vaccine Pt: or over 60 yrs (1 - 1-dose 75+ series) 12/08/2018 DEPRESSION SCREENING 02/21/2024 COVID-19 VACCINE ( - 2023-2 5 season) 2024 INFLUENZA VACCINE (#1) 2024 HEPATITIS B VACCINE [...]
--- OUTSIDE RECORDS SUMMARY | 2024-12-13 18:52 | XMS_ITS | Clinical Summary ---
Author Organization [facility] Address [address] [place] [address] Care Team Providers Care Gutter Installer Name Role Phone Willi Bray MD Unavailable [phone] Cristi Magallanes MD Unavailable Unavailable Shemar Dennis MD Primary Care Provider [phone] Medications magnesium-alumi num-simethicone 400-400-40 MG/5ML suspension Take 15 mLs by mouth every 6 (six) hours as needed for Indigestion. Active amlodipine 10 MG tablet Take 10 mg by mouth daily. Active aspirin EC 81 MG EC tablet Take 81 mg by mouth daily. Active atorvastatin 80 MG tablet Take 80 mg by mouth nightly at bedtime. Active clopidogrel 75 MG tablet Take 75 mg by mouth daily. Active ezetimibe 10 MG tablet Take 10 mg by mouth daily. Active isosorbide dinitrate 10 MG tablet Take 10 mg by mouth 2 (two) times daily with meals. Active lisinopril 20 MG tablet Take 20 mg by mouth daily. Active loratadine 10 MG tablet Take 10 mg by mouth daily as needed for Allergies. Active metoprolol tartrate 25 MG tablet Take by mouth 2 (two) times daily. Active nitroGLYCERIN 0.[address] 0.4 mg under the tongue every 5 (five) minutes as needed for Chest Pain. Maximum of 3 doses, one tablet every 5 minutes. Active pantoprazole 20 MG tablet Take 20 mg by mouth 2 (two) times daily before meals. Active Active Problems Problem Noted Date Diagnosed Date Essential hypertension 10/27/2015 Coronary artery disease invo lving [place] coronary artery of [place] heart 10/18/2015 History of coronary artery bypass graft 10/18/19 16 Overview (10/27/2015): 2010 Coronary artery disease involving coronary bypas s graft 10/18/2015 History of non-ST elevation myocardial infarctio n (NSTEMI) 10/18/2015 Overview (10/27/2015): February 2015 Mixed hyperlipidemia 10/18/2015 Carotid disease, bilateral Overview (10/27/2015): S/P bilateral endarterectomy GERD (gastroesophageal reflux disease) Encounters Date Type Department Care Team Description 12/03/2024 2:58 PM CDT - 12/03/2024 11:59 PM CDT Hospital Encounter [facility] [address] [place] [address] Harvinder Frederick, DO Discharge Disposition: Home or Self Care (Routine Discharge) 12/03/2024 Travel 11/26/2024 Community Orders [facility] EPICCARE LINK Harvinder Frederick, from Last 3 Months Family History Relation Status Comments Father History of CAD Mother Positive for juhi betes Social History Tobacco Use Types Packs/Day Years Used Date Smoking Tobacco: Former Alcohol Use Standard Drinks/Week Comments Yes 0 (1 standard drink = 0.6 oz pur e alcohol) Sex and Gender Information Value Date Recorded Sex Assigned at Male 07/01/2024 4:27 PM CDT Legal Sex Male 5:07 PM CDT Gender Identity Not on file Sexual Orientation Not on file Plan of Treatment Health Maintenance Due Date Last Done Comments ASCVD LDL 1945 ASCVD Statin 1945 Annual Medicare Wellness Visit 12/08/2008 DTaP, Tdap and Td Vaccines (1 - Tdap) 06/28/2011 06/27/2011 Zoster Vaccines (2 of 3) 03/04/2014 01/07/2014 RSV Immunization or 60+ Years (1 - 1-dose 75+ series) 12/08/2018 COVID-19 Vaccine (4 - season) 2024 02/03/2021, 04/22/2020, 03/24/2020 Influenza Adult (#1) 2024 01/15/2021, 12/11/2019, 12/04/2018, Additional history exists Pneumococcal Vaccine: 50+ Years Completed 04/14/2017, 01/11/2016, 01/05/2012 Hepatitis A Vaccines Aged Out No long er eligible based on patient's age to complete this topic Meningococcal B Vaccine Aged Out No l onger eligible based on patient's age to complete this topic Meningococcal Vaccine Aged Out No judy aguilar eligible based on patient's age to complete this topic RSV Immunizations Under 20 Months Aged Out No longer eligible based on patient's age to complete this topic Procedures Procedure Name Priority Date/Time Associated Diagnosis Comments USE ECHOCARDIOGRAM Routine 12/03/2024 4: 08 PM CDT Cardiomyopathy, unspecified ([facility]) from Last 3 Months Results * USE ECHOCARDIOGRAM (12/03/2024 4:08 PM CDT) Anatomical Region Laterality Modality Cardiac Ultrasound 12/03/2024 3:45 PM CDT Narrative 12/05/2024 5:56 PM CDT Echocardiography Report Pat.Name: Dandy Cazares Pat.ID: [id number] .Date: 12/03/2024 Refer.MD: Kimi, [facility] Exam Time: 3:45:00 PM Study Type:[facility] Height: 69 in Weight: 147 lb BSA: 1.81 m2 Age: 10 1945,78Y Sex: M Sonogrphr: Filiberto Pat. Stat.:Outpatient CPT - 4: [id number] Reason for Study:Cardiomyopathy, unspecified Procedures: Study performed at [place], [place] and interpreted by [facility]. 2D, M-mode, Doppler, Color Flow ++++++++++++++++++++++++++++++++++++ SUMMARY: ++++++++++++++++++++++++++++++++++++ Estimated left ventricular ejection fraction is 35-40%. Mild to moderate concentric left ventricular hypertrophy. Right ventricular systolic function is normal. 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 ++++++++++++++++++++++++++++++++++++ FINDINGS: ++++++++++++++++++++++++++++++++++++ LV: The left ventricular size is normal. Estimated left ventricular ejection fraction is 35-40%. Mild to moderate concentric left ventricular hypertrophy. Left ventricular diastolic function is abnormal (grade 1 - impaired relaxation). RV: The right ventricular size is normal. Right ventricular systolic function is normal. Right ventricular systolic pressure is 36 mmHg. LA: The left atrial size is mildly enlarged. RA: The right atrial size is normal. JOSEFINA: No evidence of pericardial effusion. AO: The proximal ascending aorta measures 3.6cm. PA: Estimated right atrial pressure of 3 mmHg. SVn: Inferior vena cava is normal. Inferior vena cava shows >50% collapse with respiration consistent with normal right atrial pressure. AV: Mild aortic valve stenosis. The peak velocity across the aortic valve measures 2.17m/sec with a peak gradient of 19mmHg and a mean gradient of 9mmHg. The calculated aortic valve area is 1.16cm2. No evidence of aortic regurgitation. Mild calcification of aortic valve leaflets. The aortic valve not well visualized. MV: Trace mitral regurgitation. Mild calcification of mitral valve leaflets. PV: Mild pulmonic regurgitation. Pulmonic valve not well visualized. TV: Structurally normal tricuspid valve. Mild tricuspid regurgitation. <Electronic Signature> 12/05/2024 05:56 PM Clemente Dai M.D. Procedure Note Clemente Dai MD - 12/05/2024 Echocardiography Report Pat.Name: Dandy Cazares ID: [id number] .Date: 12/03/2024 Refer.: Kimi, [facility] Exam Time: 3:45:00 PM Study Type:[facility] Height: 69 in Weight: 147 lb BSA: 1.81 m2 Age: 10 1945,78Y Sex: M Sonogrphr: Am Kary. Stat.:Outpatient CPT - 4: [id number] Reason for Study:Cardiomyopathy, unspecified Procedures: Study performed at [place], [place] and interpreted by [facility]. 2D, M-mode, Doppler, Color Flow ++++++++++++++++++++++++++++++++++++ SUMMARY: ++++++++++++++++++++++++++++++++++++ Estimated left ventricular ejection fraction is 35-40%. Mild to moderate concentric left ventricular hypertrophy. Right ventricular systolic function is normal. 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 ++++++++++++++++++++++++++++++++++++ FINDINGS: ++++++++++++++++++++++++++++++++++++ LV: The left ventricular size is normal. Estimated left ventricular ejection fraction is 35-40%. Mild to moderate concentric left ventricular hypertrophy. Left ventricular diastolic function is abnormal (grade 1 - impaired relaxation). RV: The right ventricular size is normal. Right ventricular systolic function is normal. Right ventricular systolic pressure is 36 mmHg. LA: The left atrial size is mildly enlarged. RA: The right atrial size is normal. JOSEFINA: No evidence of pericardial effusion. AO: The proximal ascending aorta measures 3.6cm. PA: Estimated right atrial pressure of 3 mmHg. SVn: Inferior vena cava is normal. Inferior vena cava shows >50% collapse with respiration consistent with normal right atrial pressure. AV: Mild aortic valve stenosis. The peak velocity across the aortic valve measures 2.17m/sec with a peak gradient of 19mmHg and a mean gradient of 9mmHg. The calculated aortic valve area is 1.16cm2. No evidence of aortic regurgitation. Mild calcification of aortic valve leaflets. The aortic valve not well visualized. MV: Trace mitral regurgitation. Mild calcification of mitral valve leaflets. PV: Mild pulmonic regurgitation. Pulmonic valve not well visualized. TV: Structurally normal tricuspid valve. Mild tricuspid regurgitation. <Electronic Signature> 12/05/2024 05:56 PM Clemente Dai M.D. Harvinder Frederick DO ECHO Final Result from Last 3 Months Insurance BLUE [place] BLUE [facility] MEDICARE Care Teams Gutter Installer Relationship Specialty Start Date End Date Shemar Dennis MD [address] [place] [address] PCP - General FAMILY PRACTICE 12/02/15 Willi Bray MD [address] [place] [address] [place] Cloth Carrier CARDIOVASCULAR DISEASE 10/18/15 Cristi Magallanes MD [address] [place] [address] Marva Cloth Carrier CARDIOVASCULAR DISEASE 11/16/15
--- OUTSIDE RECORDS SUMMARY | 2024-12-13 18:52 | XMS_ITS | Clinical Summary ---
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 Role Phone Shemar Dennis MD Primary Care Provider Allergies Active Allergy Reactions Criticality Noted Date Comments Pollen Extracts Cough Reaction: COUGH, , Reaction: COUGH, Tramadol Itching Low 09/18/2024 Medications nitroglycerin (NITROSTAT) 0.[address] 1 tablet (0.4MG) by sublingual route at the 1st sign of attack; may repeat every 5 min until relief; if pain persists after 3 tablets in 15 min, prompt medical attention is recommended 25 0 1 Active isosorbide mononitrate ER (IMDUR) 30 mg 24 hr tablet Take 1 tablet by mouth every day in the morning 30 each [address] (PROTONIX) 20 mg EC tablet Take 1 tablet by mouth two times daily 60 5 6 Active aspirin 81 mg tablet Take one by mouth one time per day 0 0 8 Active losartan (COZAAR) 100 mg tablet 5 Active Jardiance 10 mg tablet 5 Active Brilinta 60 mg tablet 5 Active atorvastatin (LIPITOR) 80 mg tablet Take 1 tablet (80 mg total) by mouth daily Active ezetimibe (ZETIA) 10 mg tablet Take 1 tablet (10 mg total) by mouth daily Active tamsulosin (FLOMAX) 0.4 mg extended release capsule 5 Active omega-3 fatty acids-fish oil 300-1,000 mg capsule Take 2 capsules (2 g total) by mouth daily Active carvediloL (COREG) 3.125 mg tablet 1 tablet (3.125 mg total) 5 Active metoprolol (LOPRESSOR) 25 mg tablet take 1 tablet (25MG) by oral route 2 times every day 0 1 025 Discontin ued(Thera py completed ) rosuvastatin (CRESTOR) 40 mg tablet take 1 tablet by oral route every day 0 0 4 025 Discontin ued(Thera py completed ) lisinopril (PRINIVIL,ZESTR IL) 20 mg tablet take 1 tablet by oral route every day 0 0 5 025 Discontin ued(Thera py completed ) clopidogrel (PLAVIX) 75 mg tablet Take 1 tablet by mouth every day 90 each 2 5 025 Discontin ued(Thera py completed ) amLODIPine (NORVASC) 10 mg tablet take 1 tablet by oral route every day 90 6 5 025 Discontin ued(Thera py completed ) spironolactone (ALDACTONE) 25 mg tablet 5 025 Discontin ued(Thera py completed ) Farxiga 10 mg tablet 5 025 Discontin ued(Thera py completed ) Active Problems Problem Noted Date Diagnosed Date Atherosclerotic PVD with intermittent claudicati on 11/13/2024 Peripheral vascular disease, unspecified 025 Assessment & Plan (11/13/2024 8:43 AM CDT): Worsening symptoms of claudication that are now limiting and has developed rest pain. No ischemic ulcerations. Patient is a candidate for a lower extremity angiogram with potential intervention. Discussed procedure with the patient along with its potential risks which include but are not limited to bleeding, infection, nerve injury, limb loss stroke or even . Answered all questions to their satisfaction. They are agreeable and wished to proceed. Assessment & Plan (10/02/2024 11:44 AM CDT): Will hold on surgical procedure intervention at this time. I had a long discussion with the patient the patient's regarding a walking regimen to evaluate patient's severity of symptoms. They were agreeable to this. We will plan for follow-up in 3 months with repeat bilateral lower extremity Doppler. Patient notified to call our office for earlier appointment if symptoms worsen or are persistent to the point where no longer tolerable. Assessment & Plan (09/24/2024 11:48 AM CDT): Lower extremity arterial Doppler ordered for further evaluation. Continue risk factor modification with ASA statin therapy. Primary hypertension 09/24/2024 Assessment & Plan (11/13/2024 8:43 AM CDT): Stable and controlled continue amlodipine isosorbide spironolactone Assessment & Plan (09/24/2024 11:48 AM CDT): Stable continue amlodipine Mixed hyperlipidemia 09/24/2024 Assessment & Plan (11/13/2024 8:42 AM CDT): Stable and controlled continue Lipitor Assessment & Plan (09/24/2024 11:48 AM CDT): Stable continue Lipitor Atherosclerosis of coronary artery 09/20/2010 Encounters Date Type Department Care Team Description 12/12/2024 8:30 AM CDT - 12/12/2024 9:30 AM CDT Surgery [facility] Cardiac Hadoop Infrastructure Architect [address] [place] [address] Kamla So MD RIGHT LOWER EXTREMITY ANGIOGRAM WITH HALF AND HALF CO2 AND WITH POSSIBLE INTERVENTION 12/12/2024 6:05 AM CDT - 12/12/2024 2:50 PM CDT Hospital Encounter [facility] Infrastructure Architect [address] [place] [address] Kamla So MD Atherosclerotic PVD with intermittent claudication; Other disorder of circulatory system Discharge Disposition: Discharge to home or self care 12/06/2024 Telephone [facility] Vascular [facility] Ve[facility] [address] [facility] [address] [place] [phone] Denita Hodges MA 11/26/2024 Documentation [facility] [address] [place] [address] [place] [phone] Shelia Sandoval, RN 11/21/2024 8:30 AM CDT - 11/21/2024 9:30 AM CDT Surgery [facility] Infrastructure Architect [address] [place] [address] Kamla So MD Discontinued Cath Case Pre Proc 11/21/2024 6:04 AM CDT - 11/21/2024 8:19 AM CDT Hospital Encounter [facility] Infrastructure Architect [address] [place] [id number] Kamla So MD Atherosclerotic PVD with intermittent claudication; Other disorder of circulatory system Discharge Disposition: Discharge to home or self care 11/21/2024 Documentation [facility] Ve[facility] Surgery [address] [place] [phone] Shelia Sandoval, RN 11/13/2024 9:15 AM CDT Office Visit [facility] Vascular at [address] [place] [phone] Nelly Fleming NP Mixed hyperlipidemia (Primary Dx); Primary hypertension; Peripheral vascular disease, unspecified 11/13/2024 8:00 AM CDT Ancillary Procedure [facility] at [address] [place] [phone] Atherosclerosis of wiyot artery of both lower extremities with intermittent claudication 11/13/2024 Documentation [facility] [address] [place] [phone] Shelia Sandoval, RN 10/02/2024 9:45 AM CDT Office Visit [facility] at [address] [place] [phone] January Ye PA Peripheral vascular disease, unspecified (Primary Dx); Mixed hyperlipidemia; Primary hypertension; Bilateral carotid artery stenosis 10/02/2024 Orders Only [facility] Vascular at [address] [place] [address] Kamla So MD Atherosclerosis of wiyot artery of both lower extremities with intermittent claudication (Primary Dx); Right carotid bruit 09/24/2024 3:00 PM CDT Ancillary Procedure [facility] Vascular and Vein Surgery at [address] [place] [address] Atherosclerosis of wiyot artery of both lower extremities with intermittent claudication 09/18/2024 10:45 AM CDT Office Visit [facility] Vascular at [address] [place] [phone] Kamla So MD Peripheral vascular disease, unspecified (Primary Dx); Mixed hyperlipidemia; Primary hypertension 09/18/2024 Orders Only [facility] Vascular at [address] [place] [address] Kamla So MD Atherosclerosis of wiyot artery of both lower extremities with intermittent claudication (Primary Dx) from Last 3 Months Surgical History Surgery Date Site/Laterality Comments CORONARY ARTERY BYPASS GRAFT 2010 Coronary Artery Bypass Graft CARDIAC CATHETERIZATION CAROTID ENDARTERECTOMY TRANSCATHETER AORTIC VALVE REPLACEMENT N/A CARDIAC CATHETERIZATION 12/12/2024 Right Procedure: RIGHT LOWER EXTREMITY ANGIOGRAM WITH HALF AND HALF CO2 AND WITH POSSIBLE INTERVENTION; Surgeon: Kamla So MD; Location: [facility] CARDIAC MANAGER INVESTMENT; Service: Vascular; Laterality: Right; PER DR. MENJIVAR (NEPHROLOGY) PATIENT WILL NEED IVF OFNORMAL SALINE 75ML/HR ONE HOUR BEFORE THE PROCEDURE, DURING, AND AFTER Medical History Medical History Date Comments Chronic coronary artery disease Coronary Artery Disease Hypertension Hypertension Hx Other Medical dyslipidemia, P AD Peripheral vascular disease Amira pheral vascular disease Hx Other Medical Bilateral Carot id Disease s/p b/l CEA Hx Other Medical Valvular Heart Disease mild Hyperlipidemia Diabetes mellitus Carotid artery disease Stroke (HCC) Family History Medical History Relation Name Comments Heart attack Sister Relation Name Status Comments Sister Social History Tobacco Use Types Packs/Day Years [...] on file Legal 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 Gender Identity Not on file Sexual Orientation Not on file Obstetrics History Last Filed Vital Signs Vital Sign Reading Time Taken Comments Blood Pressure 156/55 12/12/2024 1:25 PM CDT Pulse 51 12/12/2024 1:25 PM CDT Temperature - - Respiratory Rate 18 12/12/2024 1:25 PM CDT Oxygen Saturation 97% 12/12/2024 1:25 PM CDT Inhaled Oxygen Concentration - - Weight 68 kg (150 lb) 11/13/2024 8:26 AM CDT Height 172.7 cm (5' 8) 11/13/2024 8:26 AM CDT Body Mass Index 22.81 11/13/2024 8:26 AM CDT Plan of Treatment Health Maintenance Due Date Last Done Comments Depression Screening 1945 DTaP/Tdap/Td Vaccine (1 - Tdap) 12/08/1954 Hepatitis B Screening 12/08/1961 Pneumococcal vaccine 65+ (1 of 1 - PCV) 12/08/1993 Zoster Vaccine (1 of 2) 12/08/1993 Well Visit 65+ 12/08/2008 Influenza Vaccine (#1) 2024 Fall Risk Assessment 11/21/2025 11/21/2024 Procedures Procedure Name Priority Date/Time Associated Diagnosis Comments ANGIOGRAPHY UNILATERAL EXTREMITY S&I 83119 Routine 12/12/2024 9:21 AM CDT Atherosclerotic PVD [...] intermittent claudication Other disorder of circulatory system BASIC METABOLIC PANEL STAT 12/12/2024 6:50 AM CDT Atherosclerotic PVD with intermittent claudication PROTIME-INR STAT 12/12/2024 6:50 AM CDT Atherosclerotic PVD with intermittent claudication TYPE AND SCREEN STAT 12/12/2024 6:50 AM CDT Atherosclerotic PVD with intermittent claudication DISCONTINUED CATH CASE PRE PROC (DEF ORD) Routine 11/21/2024 8:19 AM CDT Atherosclerotic PVD with intermittent claudication B ABO / RH CONFIRMATION TESTING STAT 11/21/2024 7:05 AM CDT POCT GLUCOSE DEVICE Routine 11/21/2024 6 :58 AM CDT EGFR Routine 11/21/2024 6:58 AM CDT Atherosclerotic PVD with intermittent claudication DIFFERENTIAL AUTO Routine 11/21/2024 6:5 8 AM CDT Atherosclerotic PVD with intermittent claudication ANTIBODY SCREEN Timed 11/21/2024 6:58 AM CDT Atherosclerotic PVD with intermittent claudication ABO/RH Timed 11/21/2024 6:58 AM CDT Atherosclerotic PVD with intermittent claudication PROTIME-INR Routine 11/21/2024 6:58 AM CDT Atherosclerotic PVD with intermittent claudication TYPE AND SCREEN Timed 11/21/2024 6:58 AM CDT Atherosclerotic PVD with intermittent claudication APTT Routine 11/21/2024 6:58 AM CDT Atherosclerotic PVD with intermittent claudication Other disorder of circulatory system CBC WITH AUTO DIFFERENTIAL Routine 11/21/2024 6:58 AM CDT Atherosclerotic PVD with intermittent claudication BASIC METABOLIC PANEL Routine 11/21/2024 6:58 AM CDT Atherosclerotic PVD with intermittent claudication US ARTERIAL DOPPLER LOWER EXTREMITY BILATERAL Schedule Routine, Read Routine (OP Routine) 11/13/2024 8:30 AM CDT Atherosclerosis of wiyot artery of both lower extremities with intermittent claudication US ARTERIAL DOPPLER LOWER EXTREMITY BILATERAL Schedule Routine, Read Routine (OP Routine) 09/24/2024 3:35 PM CDT Atherosclerosis of wiyot artery of both lower extremities with intermittent claudication from Last 3 Months Results * ANGIOGRAPHY UNILATERAL EXTREMITY S&I [id number] (12/12/2024 9:21 AM CDT) Anatomical Region Laterality Modality X-Ray Angiograph y Narrative 12/12/2024 9:25 AM CDT Please see OpNote for result. Kamla So MD CV CARDIAC CATH PROCEDURES Final [...] AM CDT 12/12/2024 6:53 AM CDT us Kamla So MD LAB BLOOD ORDERABLES Final Resul t [place] [id number] [facility] [place] [address] * (ABNORMAL) Differential, auto (12/12/2024 6:50 AM CDT) Neutrophil abs 5.96 1.50 - 6.50 K/cumm Imm gran abs 0.05 0.00 - 0.10 K/cumm [facility] Lymphocyte abs 1.37 0.80 - 3.30 K/cumm [facility] Monocyte abs 1.04(H) 0.20 - 0.80 K/cumm [facility] Eosinophil abs 0.30 0.00 - 0.50 K/cumm [facility] Basophil abs 0.05 0.00 - 0.10 K/cumm [facility] Neutrophil pct 67.9 % [facility] Comment: Interpretive Data Percent cell count reference ranges are not reported, since discordance with absolute values may lead to misinterpretation of CBC data. Current Interpretive Data was last revised on 2017. Imm gran pct 0.6 % [facility] Comment: Interpretive Data Percent cell count reference ranges are not reported, since discordance with absolute values may lead to misinterpretation of CBC data. Current Interpretive Data was last revised on 2017. Lymphocyte pct 15.6 % [facility] Comment: Interpretive Data Percent cell count reference ranges are not reported, since discordance with absolute values may lead to misinterpretation of CBC data. Current Interpretive Data was last revised on 2017. Monocyte pct 11.9 % [facility] Comment: Interpretive Data Percent cell count reference ranges are not reported, since discordance with absolute values may lead to misinterpretation of CBC data. Current Interpretive Data was last revised on 2017. Eosinophil pct 3.4 % [facility] Comment: Interpretive Data Percent cell count reference ranges are not reported, since discordance with absolute values may lead to misinterpretation of CBC data. Current Interpretive Data was last revised on 2017. Basophil pct 0.6 % [facility] Comment: Interpretive Data Percent cell count reference ranges are not reported, since discordance with absolute values may lead to misinterpretation of CBC data. Current Interpretive Data was last revised on 2017. Blood 12/12/2024 6:50 AM CDT 12/12/2024 6:53 AM CDT us Kamla So MD LAB BLOOD ORDERABLES Final Resul t [facility] [address] [facility] Department of Laboratories [place], [place] [id number] * (ABNORMAL) CBC with auto differential (12/12/2024 6:50 AM CDT) WBC 8.77 3.80 - 9.90 K/cumm Hgb 14.4 13.0 - 17.5 g/dL [facility] Hct 43.2 38.9 - 50.3 % [facility] Plt 136(L) 150 - 400 K/cumm [facility] MPV 11.1 9.1 - 12.3 fL [facility] RBC 4.75 4.30 - 5.80 M/cumm [facility] MCV 90.9 81.3 - 96.4 fL [facility] MCH 30.3 27.1 - 33.3 pg [facility] MCHC 33.3 32.3 - 35.7 g/dL [facility] RDW CV 14.3 11.1 - 14.9 % [facility] RDW SD 47.8 35.7 - 48.1 fL [facility] NRBC abs 0.00 0.00 - 0.01 K/cumm [facility] Blood 12/12/2024 6:50 AM CDT 12/12/2024 6:53 AM CDT Narrative [facility] - 12/12/2024 7:00 AM CDT If most recent labs were drawn prior to 4 AM, draw only prior to initiating procedure. Kamla So MD LAB BLOOD ORDERABLES Final Resul t Performing Organization Address [facility] de Phone Number [address] [place] [address] * ABO/Rh (12/12/2024 6:50 AM CDT) ABO/Rh O Positive Blood 12/12/2024 6:50 AM CDT 12/12/2024 6:53 AM CDT Narrative [facility] - 12/12/2024 7:29 AM CDT Has the patient had Daratumumab or Isatuximab in the past 6 months?->Unknown Kamla So MD LAB BLOOD BANK TEST ORDERABLES F inal Result Performing Organization Address [facility] de Phone Number [address] [place] [address] * aPTT (12/12/2024 6:50 AM CDT) aPTT 31 22 - 37 sec Comment: Interpretive data aPTT test has not been evaluated for monitoring heparin therapy. The anti-Xa is the preferred test. Current interpretive data was last revised on 2019. Blood 12/12/2024 6:50 AM CDT 12/12/2024 6:53 AM CDT Kamla So MD LAB BLOOD ORDERABLES Final Resul t Performing Organization Address [facility] Co de Phone Number [address] [place] [address] * (ABNORMAL) Protime-INR (12/12/2024 6:50 AM CDT) Pathologist [facility] PT 14.80(H) 12.00 - 14.60 sec INR 1.15 0.90 - 1.20 [facility] Comment: Interpretive data Oral anticoagulant therapeutic ranges: Venous thromboembolism prophylaxis or treatment: 2.0-3.0 CARDIOLOGY Standard range: 2.0-3.0 High-intensity range: 2.5-3.5 Refer to indication-specific guidelines for appropriate target ranges for prosthetic heart valve replacement. Current interpretive data was last revised on 2019. Blood 12/12/2024 6:50 AM CDT 12/12/2024 6:53 AM CDT Kamla So MD LAB BLOOD ORDERABLES Final Resul t Performing Organization Address [facility] Co de Phone Number [address] [employer] [place], [place] [id number] * Antibody screen (12/12/2024 6:50 AM CDT) [facility] [place], indirect, Gel Interpretation Negative ABSC Blood 12/12/2024 6:50 AM CDT 12/12/2024 6:53 AM CDT Narrative [facility] - 12/12/2024 7:29 AM CDT Has the patient had Daratumumab or Isatuximab in the past 6 months?->Unknown Kamla So MD LAB BLOOD BANK TEST ORDERABLES F inal Result Performing Organization Address [facility] Co de Phone Number [address] [place] [address] * (ABNORMAL) Basic metabolic panel (12/12/2024 6:50 AM CDT) [facility] Sodium 137 135 - 145 mmol/L Potassium, pl 4.6 3.3 - 4.9 mmol/L [facility] Comment:Hemolyzed; Potassium value may be falsely elevated by as much as 1.0 mmol/L. Suggest redraw and reanalysis. Chloride 109 97 - 110 mmol/L [facility] CO2 18(L) 22 - 32 mmol/L [facility] Anion gap 10 2 - 15 mmol/L [facility] BUN 40(H) 6 - 25 mg/dL [facility] Creatinine 2.13(H) 0.80 - 1.30 mg/dL [facility] Glucose 122 70 - 199 mg/dL [facility] Comment: Interpretive Data Fasting glucose >/= 126 [...] classification and Diagnosis of Diabetes Diabetes Care 202; 46: S19-S40. Current interpretive data was last revised 2022. Calcium 9.1 8.5 - 10.3 mg/dL [facility] Blood 12/12/2024 6:50 AM CDT 12/12/2024 6:53 AM CDT us Kamla So MD LAB BLOOD ORDERABLES Final Resul t Performing Organization Address City/State/[facility] Co de Phone Number [facility] [address] [facility] Department [place] [address] * DISCONTINUED CATH CASE PRE PROC (11/21/2024 8:19 AM CDT) Anatomical Region Laterality Modality X-Ray Angiograph y Narrative 11/21/2024 8:19 AM CDT Please see OpNote for result. us Kamla So MD CV CARDIAC CATH PROCEDURES Final Result * ABO / Rh Confirmation Testing (11/21/2024 7:05 AM CDT) ABO/Rh Confirmation O Positive [facility] Blood 11/21/2024 7:05 AM CDT 11/21/2024 7:09 AM CDT us Kamla So MD LAB BLOOD ORDERABLES Final Resul t Performing Organization Address City/[facility] Co de Phone Number K[facility]LIE [address] Department [place] [address] [facility] * (ABNORMAL) eGFR (11/21/2024 6:58 AM CDT) Pathologist [facility] eGFR 24(L) >=60 mL/min/1. 73 m2 Comment: Interpretive Data [...] interpretive data was last reviewed 2020. Blood 11/21/2024 6:58 AM CDT 11/21/2024 7:03 AM CDT us Kamla So MD LAB BLOOD ORDERABLES Final Resul t Performing Organization Address City/[facility] Co de Phone Number [facility]LIE [address] Department [place] [address] * (ABNORMAL) Differential, auto (11/21/2024 6:58 AM CDT) Pathologist [facility] Neutrophil abs 5.90 1.50 - 6.50 K/cumm Imm gran abs 0.06 0.00 - 0.10 K/cumm [facility] Lymphocyte abs 1.28 0.80 - 3.30 K/cumm [facility] Monocyte abs 0.93(H) 0.20 - 0.80 K/cumm [facility] Eosinophil abs 0.25 0.00 - 0.50 K/cumm [facility] Basophil abs 0.05 0.00 - 0.10 K/cumm [facility] Neutrophil pct 69.6 % [facility] Comment: Interpretive Data Percent cell count reference ranges are not reported, since discordance with absolute values may lead to misinterpretation of CBC data. Current Interpretive Data was last revised on 2017. Imm gran pct 0.7 % [facility] Comment: Interpretive Data Percent cell count reference ranges are not reported, since discordance with absolute values may lead to misinterpretation of CBC data. Current Interpretive Data was last revised on 2017. Lymphocyte pct 15.1 % [facility] Comment: Interpretive Data Percent cell count reference ranges are not reported, since discordance with absolute values may lead to misinterpretation of CBC data. Current Interpretive Data was last revised on 2017. Monocyte pct 11.0 % [facility] Comment: Interpretive Data Percent cell count reference ranges are not reported, since discordance with absolute values may lead to misinterpretation of CBC data. Current Interpretive Data was last revised on 2017. Eosinophil pct 3.0 % [facility] Comment: Interpretive Data Percent cell count reference ranges are not reported, since discordance with absolute values may lead to misinterpretation of CBC data. Current Interpretive Data was last revised on 2017. Basophil pct 0.6 % [facility] Comment: Interpretive Data Percent cell count reference ranges are not reported, since discordance with absolute values may lead to misinterpretation of CBC data. Current Interpretive Data was last revised on 2017. Blood 11/21/2024 6:58 AM CDT 11/21/2024 7:03 AM CDT us Kamla So MD LAB BLOOD ORDERABLES Final Resul t [facility] [address] [facility] Department [place] [address] * POCT glucose (11/21/2024 6:58 AM CDT) Glucose, POC 103 70 - 199 mg/dL Blood 11/21/2024 6:58 AM CDT 11/21/2024 6:58 AM CDT Kamla So MD LAB POCT ORDERABLES - DEVICE Fin al Result Performing Organization Address [facility] Co de Phone Number KAYLIE [address] [place] [address] * (ABNORMAL) CBC with auto differential (11/21/2024 6:58 AM CDT) Pathologist [facility] WBC 8.47 3.80 - 9.90 K/cumm Hgb 14.9 13.0 - 17.5 g/dL [facility] Hct 45.2 38.9 - 50.3 % [facility] Plt 137(L) 150 - 400 K/cumm [facility] MPV 11.3 9.1 - 12.3 fL [facility] RBC 4.87 4.30 - 5.80 M/cumm [facility] MCV 92.8 81.3 - 96.4 fL [facility] MCH 30.6 27.1 - 33.3 pg [facility] MCHC 33.0 32.3 - 35.7 g/dL [facility] RDW CV 14.3 11.1 - 14.9 % [facility] RDW SD 48.9(H) 35.7 - 48.1 fL [facility] NRBC abs 0.00 0.00 - 0.01 K/cumm [facility] Blood 11/21/2024 6:58 AM CDT 11/21/2024 7:03 AM CDT Narrative [facility] - 11/21/2024 7:10 AM CDT If most recent labs were drawn prior to 4 AM, draw only prior to initiating procedure. Kamla So MD LAB BLOOD ORDERABLES Final Resul t Performing Organization Address City/[facility] Co de Phone Number KAYLIE [address] [employer] [place] [address] * ABO/Rh (11/21/2024 6:58 AM CDT) ABO/Rh O Positive Blood 11/21/2024 6:58 AM CDT 11/21/2024 7:03 AM CDT Narrative [facility] - 11/21/2024 7:35 AM CDT Has the patient had Daratumumab or Isatuximab in the past 6 months?->Unknown Result [facility] Kamla So MD LAB BLOOD BANK TEST ORDERABLES F inal Result Performing Organization Address [facility] [facility] Co de Phone Number [place] [phone] [facility] [place] [address] * aPTT (11/21/2024 6:58 AM CDT) aPTT 28 22 - 37 sec Comment: Interpretive data aPTT test has not been evaluated for monitoring heparin therapy. The anti-Xa is the preferred test. Current interpretive data was last revised on 2019. Blood 11/21/2024 6:58 AM CDT 11/21/2024 7:03 AM CDT Kamla So MD LAB BLOOD ORDERABLES Final Resul t Performing Organization Address [facility] de Phone Number [facility] [address] [place] [address] * Protime-INR (11/21/2024 6:58 AM CDT) PT 14.20 12.00 - 14.60 sec INR 1.09 0.90 - 1.20 KAYLIE Comment: Interpretive data Oral anticoagulant therapeutic ranges: Venous thromboembolism prophylaxis or treatment: 2.0-3.0 CARDIOLOGY Standard range: 2.0-3.0 High-intensity range: 2.5-3.5 Refer to indication-specific guidelines for appropriate target ranges for prosthetic heart valve replacement. Current interpretive data was last revised on 2019. Blood 11/21/2024 6:58 AM CDT 11/21/2024 7:03 AM CDT Result [facility] Kamla So MD LAB BLOOD ORDERABLES Final Resul t Performing Organization Address [facility]/ZIP Co de Phone Number [place] [phone] [facility] [place] [address] * Antibody screen (11/21/2024 6:58 AM CDT) [facility] [place], indirect, Gel Interpretation Negative ABSC Blood 11/21/2024 6:58 AM CDT 11/21/2024 7:03 AM CDT Narrative [facility] - 11/21/2024 7:35 AM CDT Has the patient had Daratumumab or Isatuximab in the past 6 months?->Unknown Kamla So MD LAB BLOOD BANK TEST ORDERABLES F inal Result [address] [address] * (ABNORMAL) Basic metabolic panel (11/21/2024 6:58 AM CDT) [facility] Sodium 136 135 - 145 mmol/L Potassium, pl 5.0(H) 3.3 - 4.9 mmol/L [facility] Chloride 107 97 - 110 mmol/L [facility] CO2 17(L) 22 - 32 mmol/L [facility] Anion gap 12 2 - 15 mmol/L [facility] BUN 60(H) 6 - 25 mg/dL [facility] Creatinine 2.63(H) 0.80 - 1.30 mg/dL [facility] Glucose 113 70 - 199 mg/dL [facility] Comment: Interpretive Data Fasting glucose >/= 126 [...] interpretive data was last revised 2022. Calcium 9.3 8.5 - 10.3 mg/dL [facility] Blood 11/21/2024 6:58 AM CDT 11/21/2024 7:03 AM CDT us Kamla So MD LAB BLOOD ORDERABLES Final Resul t [place] [address] [facility] [place] [address] * US Arterial Doppler Lower Extremity Bilateral (11/13/2024 8:30 AM CDT) Anatomical Region Laterality Modality Vascular Bilateral Ultrasound 11/13/2024 7:46 AM CDT Narrative 11/14/2024 9:02 AM CDT [facility] [address] [place] [address] Lower Extremity Arterial Doppler Report Patient Name: DANDY PAUL J : 1945 Study Date: 11/13/2024 7:46:00 AM Sex: M Supervisor Pleating: No Heller RVT Location: VVSE Ref Provider: AKMLA SO Quality: Adequate Order Provider: KAMLA SO PROCEDURES: Arterial Report: Bilateral lower extremity arterial Doppler exam at rest. INDICATIONS: Worsening BLE claudication. HISTORY: HTN. HLD. DM. CAD S/P CABG. BCEA. Former smoker. COMPARISONS: No change compared to prior study. The previous exam was completed on 09/24/24: Rt 0.51, Lt 0.63. MEASUREMENTS: Right Value Left Value Rt Brachial Pressure 159 mmHg Lt Brachial Pressure 161 mmHg Rt Calf Pressure >220 mmHg Lt Calf Pressure 161 mmHg Rt RABBIT FANCIER Pressure 95 mmHg Lt RABBIT FANCIER Pressure >220 mmHg Rt DPA Pressure >220 mmHg Lt DPA Pressure >220 mmHg Rt Calf Index >1.37 Lt Calf Index 1 Rt PT ITALO Resting 0.59 Lt PT ITALO Resting >1.37 Rt DP ITALO Resting >1.37 Lt DP ITALO Resting >1.37 FINDINGS: Right Common Femoral Artery Analysis: The common femoral artery waveform is triphasic. Right Popliteal Artery Analysis: The popliteal waveform is biphasic. Right Posterior Tibial Artery Analysis: The posterior tibial waveform is monophasic. Right Anterior Tibial Artery Analysis: The anterior tibial waveform is monophasic. Left Common Femoral Artery Analysis: The common femoral artery waveform is triphasic. Left Popliteal Artery Analysis: The popliteal waveform is monophasic. Left Posterior Tibial Artery Analysis: The posterior tibial waveform is monophasic. Left Anterior Tibial Artery Analysis: The anterior tibial waveform is monophasic. CONCLUSIONS: 1. Ankle-brachial index of >1.3 is non-compressible which is consistent with arterial calcifications, thus the ankle/brachial index is not obtainable in the bilateral lower extremities. 2. There is evidence of right leg arterial insufficiency at the level of femoral-popliteal arteries. 3. There is evidence of left leg arterial insufficiency at the level of femoral-popliteal arteries. ATTESTATION: I have reviewed and interpreted the pertinent images and measurements of this study. I attest to the conclusions in the final report that is provided above. Electronically Signed By: Kamla So MD 11/14/2024 8:13:34 AM CDT Procedure Note Kamla So MD - 11/14/2024 Vascular & Vein Surgery [address] [place] [address]. [place] [address] Lower Extremity Arterial Doppler Report Patient Name: DANDY PAUL J : 1945 Study Date: 11/13/2024 7:46:00 AM Sex: M Supervisor Pleating: [place],No RVT Location: [facility] Ref Provider: KAMLA SO Quality: Adequate Order Provider: KAMLA SO PROCEDURES: Arterial Report: Bilateral lower extremity arterial Doppler exam at rest. INDICATIONS: Worsening BLE claudication. HISTORY: HTN. HLD. DM. CAD S/P CABG. BCEA. Former smoker. COMPARISONS: No change compared to prior study. The previous exam was completed on09/24/24: Rt 0.51, Lt 0.63. MEASUREMENTS: Right Value Left Value Rt Brachial Pressure 159 mmHg Lt Brachial Pressure 161 mmHg Rt Calf Pressure >220 mmHg Lt Calf Pressure 161 mmHg Rt RABBIT FANCIER Pressure 95 mmHg Lt RABBIT FANCIER Pressure >220 mmHg Rt DPA Pressure >220 mmHg Lt DPA Pressure >220 mmHg Rt Calf Index >1.37 Lt Calf Index 1 Rt PT ITALO Resting 0.59 Lt PT ITALO Resting >1.37 Rt DP ITALO Resting >1.37 Lt DP ITALO Resting >1.37 FINDINGS: Right Common Femoral Artery Analysis: The common femoral artery waveform is triphasic. Right Popliteal Artery Analysis: The popliteal waveform is biphasic. Right Posterior Tibial Artery Analysis: The posterior tibial waveform is monophasic. Right Anterior Tibial Artery Analysis: The anterior tibial waveform is monophasic. Left Common Femoral Artery Analysis: The common femoral artery waveform is triphasic. Left Popliteal Artery Analysis: The popliteal waveform is monophasic. Left Posterior Tibial Artery Analysis: The posterior tibial waveform is monophasic. Left Anterior Tibial Artery Analysis: The anterior tibial waveform is monophasic. CONCLUSIONS: 1. Ankle-brachial index of >1.3 is non-compressible which is consistentwith arterial calcifications, thus the ankle/brachial index is not obtainable in thebilateral lower extremities. 2. There is evidence of right leg arterial insufficiency at the level of femoral-popliteal arteries. 3. There is evidence of left leg arterial insufficiency at the level offemoral-popliteal arteries. ATTESTATION: I have reviewed and interpreted the pertinent images and measurements ofthis study. I attest to the conclusions in the final report that is provided above. Electronically Signed By: Kamla So MD 11/14/2024 8:13:34 AM CDT us Kamla So MD IMG US PROCEDURES Final Result * US Arterial Doppler Lower Extremity Bilateral (09/24/2024 3:35 PM CDT) Anatomical Region Laterality Modality Vascular Bilateral Ultrasound 09/24/2024 2:38 PM CDT Narrative 09/26/2024 9:17 AM CDT Vascular [facility] Ve[facility] Surgery [address] [place] [address] Lower Extremity Arterial Doppler Report Patient Name: DANDY PAUL J : 1945 Study Date: 09/24/2024 2:38:00 PM Gender: M Supervisor Pleating: No Heller RVT Location: [facility] Ref Provider: KAMLA SO Quality: Adequate Order Provider: KAMLA SO PROCEDURES: Arterial Report: Bilateral lower extremity arterial Doppler exam at rest. INDICATIONS: BLE claudication. HISTORY: HTN. HLD. CAD S/P CABG. Valeriano CEA. Former smoker. COMPARISONS: Prior @ [place]: falsely elevated bilaterally. MEASUREMENTS: Right Value Left Value Rt Brachial Pressure 150 mmHg Lt Brachial Pressure 158 mmHg Rt High Thigh Pressure 187 mmHg Lt High Thigh Pressure >220 mmHg Rt Low Thigh Pressure 166 mmHg Lt Low Thigh Pressure 120 mmHg Rt Calf Pressure >220 mmHg Lt Calf Pressure 115 mmHg Rt RABBIT FANCIER Pressure 81 mmHg Lt RABBIT FANCIER Pressure 99 mmHg Rt DPA Pressure >220 mmHg Lt DPA Pressure >220 mmHg Rt 1st Digit Pressure 27 mmHg Lt 1st Digit Pressure 28 mmHg Rt High Thigh Index 1.18 Lt High Thigh Index >1.39 Rt Low Thigh Index 1.05 Lt Low Thigh Index 0.76 Rt Calf Index >1.39 Lt Calf Index 0.73 Rt PT ITALO Resting 0.51 Lt PT ITALO Resting 0.63 Rt DP ITALO Resting >1.39 Lt DP ITALO Resting >1.39 Rt Digit 1/Arm Index 0.17 Lt Digit 1/Arm Index 0.18 FINDINGS: Right Common Femoral Artery Analysis: The common femoral artery waveform is triphasic. Right Popliteal Artery Analysis: The popliteal waveform is monophasic. Right Posterior Tibial Artery Analysis: The posterior tibial waveform is monophasic. Right Anterior Tibial Artery Analysis: The anterior tibial waveform is monophasic. Right Digits: The right digit waveform is dampened. Left Common Femoral Artery Analysis: The common femoral artery waveform is biphasic. Left Popliteal Artery Analysis: The popliteal waveform is monophasic. Left Posterior Tibial Artery Analysis: The posterior tibial waveform is monophasic. Left Anterior Tibial Artery Analysis: The anterior tibial waveform is monophasic. Left Digits: The left digit waveform is dampened. CONCLUSIONS: 1. Ankle-brachial index of >1.3 is non-compressible which is consistent with arterial calcifications, thus the ankle/brachial index is not obtainable in the bilateral lower extremities. 2. There is evidence of right leg arterial insufficiency at the level of femoral-popliteal arteries. 3. There is evidence of left leg arterial insufficiency at the level of femoral-popliteal arteries. ATTESTATION: I have reviewed and interpreted the pertinent images and measurements of this study. I attest to the conclusions in the final report that is provided above. Electronically Signed By: Kamla So MD 09/26/2024 9:16:55 AM CDT Procedure Note Kamla So MD - 09/26/2024 Vascular [facility] Vein Surgery [address] [facility] [place] [address] Lower Extremity Arterial Doppler Report Patient Name: DANDY PAUL J : 1945 Study Date: 09/24/2024 2:38:00 PM Gender: M Supervisor Pleating: No Heller RVT Location: [facility] Ref Provider: KAMLA SO Quality: Adequate Order Provider: KAMLA SO PROCEDURES: Arterial Report: Bilateral lower extremity arterial Doppler exam at rest. INDICATIONS: BLE claudication. HISTORY: HTN. HLD. CAD S/P CABG. Valeriano CEA. Former smoker. COMPARISONS: Prior @ [place]: falsely elevated bilaterally. MEASUREMENTS: Right Value Left Value Rt Brachial Pressure 150 mmHg Lt Brachial Pressure 158 mmHg Rt High Thigh Pressure 187 mmHg Lt High Thigh Pressure >220 mmHg Rt Low Thigh Pressure 166 mmHg Lt Low Thigh Pressure 120 mmHg Rt Calf Pressure >220 mmHg Lt Calf Pressure 115 mmHg Rt RABBIT FANCIER Pressure 81 mmHg Lt RABBIT FANCIER Pressure 99 mmHg Rt DPA Pressure >220 mmHg Lt DPA Pressure >220 mmHg Rt 1st Digit Pressure 27 mmHg Lt 1st Digit Pressure 28 mmHg Rt High Thigh Index 1.18 Lt High Thigh Index >1.39 Rt Low Thigh Index 1.05 Lt Low Thigh Index 0.76 Rt Calf Index >1.39 Lt Calf Index 0.73 Rt PT ITALO Resting 0.51 Lt PT ITALO Resting 0.63 Rt DP ITALO Resting >1.39 Lt DP ITALO Resting >1.39 Rt Digit 1/Arm Index 0.17 Lt Digit 1/Arm Index 0.18 FINDINGS: Right Common Femoral Artery Analysis: The common femoral artery waveform is triphasic. Right Popliteal Artery Analysis: The popliteal waveform is monophasic. Right Posterior Tibial Artery Analysis: The posterior tibial waveform is monophasic. Right Anterior Tibial Artery Analysis: The anterior tibial waveform is monophasic. Right Digits: The right digit waveform is dampened. Left Common Femoral Artery Analysis: The common femoral artery waveform is biphasic. Left Popliteal Artery Analysis: The popliteal waveform is monophasic. Left Posterior Tibial Artery Analysis: The posterior tibial waveform is monophasic. Left Anterior Tibial Artery Analysis: The anterior tibial waveform is monophasic. Left Digits: The left digit waveform is dampened. CONCLUSIONS: 1. Ankle-brachial index of >1.3 is non-compressible which is consistentwith arterial calcifications, thus the ankle/brachial index is not obtainable in thebilateral lower extremities. 2. There is evidence of right leg arterial insufficiency at the level of femoral-popliteal arteries. 3. There is evidence of left leg arterial insufficiency at the level offemoral-popliteal arteries. ATTESTATION: I have reviewed and interpreted the pertinent images and measurements ofthis study. I attest to the conclusions in the final report that is provided above. 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
--- OUTSIDE RECORDS SUMMARY | 2024-12-13 18:52 | XMS_ITS | Encounter Summary ---
Author Organization [facility] Address [address] [place] [address] Care Team Providers Care Veneer Sorter Name Role Phone Willi Bray MD Unavailable [phone] Cristi Magallanes MD Unavailable Unavailable Shemar Dennis MD Primary Care Provider [phone] Encounter Details Date Type Department Care Team (Late st Contact Info) Description 10/18/2015 [facility] [address] [id number] Cristi Magallanes MD Social History Tobacco Use Types Packs/Day Years [...] documented as of this encounter Visit Diagnoses Not on filedocumented in this encounter Care Teams Veneer Sorter Relationship Specialty Start Date End Date Shemar Dennis MD [address] [facility] [address] [place] [address] PCP - General FAMILY PRACTICE 12/02/15 Willi Bray MD [address] [place] [address] [place] Academic Dean CARDIOVASCULAR DISEASE 10/18/15 Cristi Magallanes MD [address] [place] [address] [place] Academic Dean CARDIOVASCULAR DISEASE 11/16/15 documented as of this encounter
--- NOTE | 2024-12-13 19:02 | ED.AMS ---
HPI - Altered Mental Status General Chief Complaint: Altered Mental Status Stated Complaint: unresponsive Time Seen by Provider: 12/13/24 18:56 Limitations: altered mental status History of Present Illness HPI narrative: this is an 79-year-old male with history of CAD who presents the ED with family for altered mental status. Family states that patient has had an expanding hematoma to his left groin after he had an arteriogram yesterday. They were on their way to a [facility] today when he became unresponsive he obtain them to come to this ED. they report the patient has not taking his Brilinta today as instructed. History is otherwise limited at this time due to patient's altered mental status. Related Data Home Medications ?Medication ?Instructions ?Recorded ?Confirmed ?Last Taken ?Type aspirin 81 mg tablet,delayed 81 mg PO DAILY 08/30/19 10/23/24 12/14/20 20:30 History release (Adult Low Dose Aspirin) atorvastatin 80 mg tablet (Lipitor) 80 mg PO HS 12/11/20 10/23/24 12/14/20 20:30 History pantoprazole 20 mg tablet,delayed 20 mg PO BID 12/15/20 10/23/24 12/15/20 08:30 History release ticagrelor 60 mg tablet (Brilinta) 60 mg PO Q12H 01/03/24 10/23/24 Unknown History spironolactone 25 mg tablet 25 mg PO DAILY 08/20/24 10/23/24 Unknown History empagliflozin 10 mg tablet 10 mg PO DAILY 10/23/24 10/23/24 Unknown History (Jardiance) Allergies Allergy/AdvReac Type Severity Reaction Status Date / Time tramadol AdvReac Itching Verified 10/23/24 09:59 Review of Systems Review of Systems: ROS unobtainable: Yes unobtainable due to mental status PMFSH Past Medical History Medical History Peripheral artery disease DM renal manif type II CKD (chronic kidney disease) stage 4, GFR 15-29 ml/min Hypertension Stroke BPH (benign prostatic hyperplasia) Chronic kidney disease, stage 3 unspecified Controlled diabetes mellitus Carotid stenosis, bilateral Non-ST elevation [place] (NSTEMI) Surgical History Surgical History Hx of left inguinal hernia repair Laparoscopic left inguinal hernia repair with mesh, Erlinda assisted on 12/15/20 History of incisional hernia repair Recurrent incision hernia repair with Ventralex ST 8cm mesh patch on 12/15/20 History of umbilical hernia repair with mesh in 2019 History of coronary artery stent placement History of appendectomy History of cholecystectomy History of carotid endarterectomy bilateral S/P CABG (coronary artery bypass graft) S/P TAVR (transcatheter aortic valve replacement) Family History Family History Sibling Family history of malignant neoplasm Family history of diabetes mellitus in first degree relative Mother Family history of diabetes mellitus in first degree relative Cerebrovascular accident, Onset Age: 65 Patient's mother is Social History Social History Smoking packs per day: 1 Smoking cigarettes per day: 20.0 Years smoked: 3 Smoking pack-years: 3.00 Smoking status: Former smoker Tobacco type: cigarettes Second hand tobacco smoke exposure: No Smoking end date: 02/21/1964 Alcohol intake: former Drinks per week: 3 Substance use: never Substance use type: does not use Living arrangements: with family Occupation/Education: retired Gender identity (if verbalized by the patient): Male Sexual Orientation (if Verbalized by the Patient): Straight or Heterosexual Spiritual care concerns: No Exam Narrative: APPEARANCE: Toxic appearing, minimally responsive, resting in bed EYES: EOMI HEENT: Normocephalic, atraumatic, dry mucous membranes RESPIRATORY: No respiratory distress Clear to auscultation bilaterally with no rhonchi wheezing or rales. CARDIOVASCULAR: Regular rate and rhythm without murmurs rubs or gallops. ABDOMINAL: Soft, nontender, nondistended, no rebound or guarding MUSCULOSKELETAl: No obvious deformities NEURO: Mumble some words to verbal stimulation. SKIN:: Pale. Large hematoma to the left groin with ecchymosis, left lower extremity is cool to touch distal to this PSYCHIATRIC: Normal affect/mood, Course Vital Signs Vital signs: Vital Signs Pulse Rate 88 12/13/24 18:52 Respiratory Rate 18 12/13/24 18:52 Blood Pressure 85/48 L 12/13/24 18:52 Pulse Oximetry 100 12/13/24 18:52 Oxygen Delivery Room Air 12/13/24 18:52 Temperature 97.4 F L 12/13/24 19:44 Pulse Rate 93 12/13/24 19:44 Respiratory Rate 19 12/13/24 19:44 Blood Pressure 116/61 12/13/24 19:44 Pulse Oximetry 97 12/13/24 19:44 Oxygen Delivery Room Air 12/13/24 18:59 MDM - Altered Mental Status MDM Narrative Medical decision making narrative: 79-year-old male presenting for altered mental status. On initial evaluation, patient was hypertensive to 80s/40s with weak central pulses. Left lower extremity was cool to touch and difficult to palpate distal pulses in the foot. Patient was immediately treat Joann bur and and given 1 L crystalloid fluids. He did have improvement of his altered mental status and was able to mumble some words. I did perform a bedside ultrasound of the left groin and saw a large hematoma, unable to visualize the femoral artery. There was immediate concerns for acute limb ischemia due to a femoral artery hematoma. I consulted Dr. Deleon, vascular surgery, who accepts in ED to ED transfer. Prefers CTA if delay in transport but will perform at [place] otherwise. Spoke with Dr. Rojas, , who will accept patient in the ED. Patient was given 1 unit PRBCs prior to transfer. Patient was fallen out and CTA would delay transfer and likely operative intervention. CRITICAL CARE Indication: hypovolemic shock, acute limb ischemia Time type: intermittent I provided a total of 35 minutes of critical care excluding separately billable procedures. This includes time w/ EMS, initial bedside evaluation, reviewing old records, review of testing done while under my care, discussion w/ the family, nurses, office 365 consultant and guiding the patient's care while in the emergency department. Differential Diagnosis Differential diagnosis: Likely altered mental status, delirium, dementia, hypoglycemia and other (Acute limb ischemia, hemorrhagic shock, hypovolemic shock) Medical Records Attestation: I reviewed the patient's medical records. Lab Data Attestation: I reviewed the patient's lab results. 12/13/24 19:01 12/13/24 19:01 Labs: Lab Results 12/13/24 12/13/24 Range/Units 19:00 19:01 WBC 16.8 H (4.5-10.0) K/mm3 RBC 3.47 L (4.6-6.20) M/mm3 Hgb 10.6 L (14.0-18.0) g/dL Hct 33.0 L (42.0-52.0) % MCV 95.1 (80-100) fl MCH 30.5 (26-34) pg MCHC 32.1 (32-36) g/dl RDW 14.5 (11.5-14.5) % Plt Count 141 L (150-375) k/mm3 MPV 11.3 H (7.4-10.4) fl Immature Gran % (Auto) 1.0 H (0-0.5) % Neut % (Auto) 68.6 (45.5-73.1) % Lymph % (Auto) 16.5 L (18.3-44.2) % [place] % (Auto) 12.2 H (2.6-8.5) % Eos % (Auto) 1.3 (0-4.4) % Baso % (Auto) 0.4 (0.2-1.2) % Lymph # (Auto) 2.77 (0.9-3.2) K/mm3 [place] # (Auto) 2.1 H (0.1-0.6) K/mm3 Eos # (Auto) 0.2 (0-0.3) K/mm3 Baso # (Auto) 0.1 (0.0-0.1) K/mm3 Abs Immat Gran (auto) 0.16 H (0.00-0.031) K/mm3 Absolute Neuts (auto) 11.6 H (1.3-6.7) K/mm3 Absolute Nucleated RBC 0.000 (0.0-0.012) K/mm3 Nucleated RBC % 0.0 (0.0-0.2) % Sodium 131 L (137-145) mmol/L Potassium 4.7 (3.4-5.0) mmol/L Chloride 104 (98-107) mmol/L Carbon Dioxide 18 L (22-30) mmol/L Anion Gap 9 (4-12) mmol/L BUN 38 H (9-20) mg/dL Creatinine 2.38 H (0.7-1.3) mg/dL Estim Creat Clear Calc Not Reportable Estimated GFR 26 L (59 - ) Glucose 235 H (65-110) mg/dL Lactic Acid 3.1 H (0.7-2.0) mmol/L Calcium 8.1 L (8.4-10.2) mg/dL Total Bilirubin 0.5 (0.2-1.3) mg/dL AST 27 (17-59) U/L ALT 28 (6-50) U/L Alkaline Phosphatase 67 (38-126) U/L Total Creatine Kinase 101 (55-170) U/L Troponin I 0.030 (0.000-0.034) ng/mL Total Protein 5.8 L (6.3-8.2) g/dL Albumin 3.3 L (3.5-5.1) g/dL Blood Type O Positive Antibody Screen Negative Crossmatch See Detail Discharge Plan Discharge Clinical Impression: Hematoma of left inguinal region, Acute lower limb ischemia, Hypovolemic shock Patient Disposition: Acute Care Hospital Condition: Serious Patient Language: Macedonian Prescriptions: No Action aspirin [Adult Low Dose Aspirin] 81 mg tablet,delayed release (DR/EC) 81 mg PO DAILY Brilinta 60 mg tablet 60 mg PO Q12H Jardiance 10 mg tablet 10 mg PO DAILY spironolactone 25 mg tablet 25 mg PO DAILY atorvastatin [Lipitor] 80 mg tablet 80 mg PO HS pantoprazole 20 mg Tablet,Delayed Release (Dr/Ec) 20 mg PO BID isosorbide dinitrate 10 mg tablet 10 mg PO BID Qty: 180 1RF Rx Instructions: allow nitrate-free interval of 12-14 hrs per 24-hr period ezetimibe [Zetia] 10 mg tablet 10 mg PO DAILY Qty: 90 1RF tamsulosin [Flomax] 0.4 mg capsule 0.8 mg PO QHS Qty: 180 2RF dapagliflozin propanediol [Farxiga] 10 mg tablet 10 mg PO QAM Qty: 90 1RF losartan 100 mg tablet 100 mg PO DAILY Qty: 90 2RF Follow-up/Referrals: Shemar Dennis MD [Primary Care Provider, Family Practice]
[2024-12-13 19:06] LABS: Hematocrit 33.0 % (42.0-52.0); Hemoglobin 10.6 g/dL (14.0-18.0); Immature Granulocyte Percent A 1.0 % (0-0.5); Lymphocytes Absolute Auto 2.77 K/mm3 (0.9-3.2); Mean Corpuscular HGB Conc 32.1 g/dl (32-36); Mean Corpuscular Hemoglobin 30.5 pg (26-34); Mean Corpuscular Volume 95.1 fl (80-100); Nucleated Red Blood Cells Absolute Auto 0.000 K/mm3 (0.0-0.012); Nucleated Red Blood Cells Perc 0.0 % (0.0-0.2); Platelet Count Result 141 k/mm3 (150-375); Red Blood Count 3.47 M/mm3 (4.6-6.20); White Blood Count 16.8 K/mm3 (4.5-10.0)
--- NOTE | 2024-12-13 19:06 | ECG_ITS ---
Test Date: 2024-12-13 19:00:12 Measurements Intervals [place] Rate: 86 P: 153 MO: 155 QRS: 146 QRSD: 150 T: 149 QT: 424 QTc: 510 Interpretive Statements SINUS RHYTHM WITH OCCASIONAL VENTRICULAR PREMATURE COMPLEXES ARM LEADS REVERSED LEFT BUNDLE BRANCH BLOCK BASELINE ARTIFACT- I, II, AVR, AVL, AVF, V5-V6 ABNORMAL ECG No previous ECG available for comparison Electronically Signed On 12-13-2024 21:05:24 CDT by Kevin Batista D.O.
[2024-12-13 19:13] VITALS: BP 108/60; PULSE 93; RESP 19; TEMP 36.2; O2SAT 97
[2024-12-13 19:18] LABS: Alanine Aminotransferase 28 U/L (6-50); Albumin Level 3.3 g/dL (3.5-5.1); Alkaline Phosphatase 67 U/L (38-126); Anion Gap 9 mmol/L (4-12); Aspartate Amino Transferase 27 U/L (17-59); Bilirubin,Total 0.5 mg/dL (0.2-1.3); Blood Urea Nitrogen 38 mg/dL (9-20); Calcium 8.1 mg/dL (8.4-10.2); Carbon Dioxide 18 mmol/L (22-30); Chloride 104 mmol/L (98-107); Estimated Glomerular Filt Rate 26; Glucose 235 mg/dL (65-110); Potassium 4.7 mmol/L (3.4-5.0); Sodium 131 mmol/L (137-145); Total Protein 5.8 g/dL (6.3-8.2)
[2024-12-13 19:23] VITALS: BP 116/61; PULSE 93; TEMP 36.3
[2024-12-13] MEDS: fentaNYL CITRATE INJ (*CRX) 100 MCG/2 ML VIAL 25 MCG IV PUSH (19:23)
[2024-12-13 19:30] LABS: Troponin I 0.030 ng/mL (0.000-0.034)
[2024-12-13] MEDS: SODIUM CHLORIDE 0.9% IV 1,000 ML 999 ML IV CONT (19:39)
[2024-12-13] MEDS: TUBING, BLOOD SET 1 EACH XX (19:39)
[2024-12-13] MEDS: SODIUM CHLORIDE 0.9% IV 250 ML 30 ML IV CONT (19:40)
--- NOTE | 2024-12-13 19:42 | PC.NURSE ---
Per EDP to do emergent blood release.
[2024-12-13 19:44] VITALS: BP 116/61; PULSE 93; RESP 19; TEMP 36.3; O2SAT 97
[2024-12-13 20:28] LABS: Creatine Kinase 101 U/L (55-170)
== END 2024-12-13 19:47 | disposition short-term general hospital (02) ==
PROVIDERS: Emergency Provider Student in an Organized Health Care Education/Training Program; PCP Family Medicine
DX: T81.19XA Other postprocedural shock, initial encounter (principal); L76.32 Postprocedural hematoma of skin and subcutaneous tissue following other procedure; I97.89 Other postprocedural complications and disorders of the circulatory system, not elsewhere classified; I12.9 Hypertensive chronic kidney disease with stage 1 through stage 4 chronic kidney disease, or unspecified chronic kidney disease; E11.22 Type 2 diabetes mellitus with diabetic chronic kidney disease; N18.4 Chronic kidney disease, stage 4 (severe); E11.51 Type 2 diabetes mellitus with diabetic peripheral angiopathy without gangrene; I70.223 Atherosclerosis of native arteries of extremities with rest pain, bilateral legs; I25.2 Old myocardial infarction; I65.23 Occlusion and stenosis of bilateral carotid arteries; N40.0 Benign prostatic hyperplasia without lower urinary tract symptoms; Z95.5 Presence of coronary angioplasty implant and graft; Z95.1 Presence of aortocoronary bypass graft; Z96.60 Presence of unspecified orthopedic joint implant; Z86.73 Personal history of transient ischemic attack (TIA), and cerebral infarction without residual deficits; Z87.891 Personal history of nicotine dependence; Z90.49 Acquired absence of other specified parts of digestive tract; Z79.02 Long term (current) use of antithrombotics/antiplatelets; Z79.82 Long term (current) use of aspirin; Z79.84 Long term (current) use of oral hypoglycemic drugs; Z79.899 Other long term (current) drug therapy; I49.3 Ventricular premature depolarization; I44.7 Left bundle-branch block, unspecified; Y84.8 Other medical procedures as the cause of abnormal reaction of the patient, or of later complication, without mention of misadventure at the time of the procedure
CPT/HCPCS: 36415; 36430; 71045; 80053; 82550; 83605; 84484; 85025; 86850; 86900; 86901; 86920; 93005; 96374; 99285; J3010; J7030; J7050; P9016